=== PATIENT | male | born 1985 | race American Indian/Alaskan Native ===

== ENCOUNTER 2017-02-28 10:40 | Emergency (ER) | payer SELFPAY ==
[2017-02-28 10:49] VITALS: BP 113/78
[2017-02-28] MEDS ORDERED: MOTRIN PO ONE (11:11)
[2017-02-28] MEDS ORDERED: TRIPLE ANTIBIOTIC TP ONE (11:12)
--- NOTE | 2017-03-01 12:15 | Emergency Department Report ---
Entered by RALPH MELO, acting as scribe for SHIRLEY MAYO NP. ED General Adult HPI - General Chief complaint: Pain General Stated complaint: GROIN PAIN Time Seen by Provider: 02/28/17 10:57 Source: patient Mode of arrival: Ambulatory Limitations: No Limitations - History of Present Illness Initial comments: 32 year old male with a PMHx of hyperhydrosis presents to the ED c/o right inguinal pain that began two days ago. Patient states that he had a scratch two days ago that turned into a large lump the next day. He currently rates pain 7/ 10, but his pain is 10/10 with walking. He reports that it feels like someone is "squeezing his groin area with pliers". Denies fever, chills, nausea, erythema to affected area and lower leg pain. Reports pain is improved with immobilization and applied pressure, but worsens with walking, movement, and heat. Uses tobacco products daily. Patient stated used OTC oint as well. NKDA. Onset/Timin -: days(s) Location: right (inquinal pain) Radiation: non-radiation Severity scale (0 -10): 7 Quality: burning, aching Consistency: constant Improves with: immobilization, other (pressure) Worsens with: movement, other (heat) Associated Symptoms: other (erythema to affected area). denies: fever/chills, nausea/vomiting Treatments Prior to Arrival: none - Related Data Previous Rx's Medication Instructions Recorded Last Taken Type Naproxen [Naprosyn TAB] 500 mg PO PRN PRN #20 tablet 02/28/17 Unknown Rx Neomy/Baci/Polymyx B Opth Oint 3.5 gm OP TID #1 oint 02/28/17 Unknown Rx [Neosporin] Allergies Allergy/AdvReac Type Severity Reaction Status Date / Time No Known Allergies Allergy Unverified 02/28/17 10:46 ED Review of Systems Comment: All other systems reviewed and negative Constitutional: denies: chills, fever Eyes: denies: eye pain, eye discharge, vision change ENT: denies: ear pain, throat pain Respiratory: denies: cough, shortness of breath, wheezing Cardiovascular: denies: chest pain, palpitations Endocrine: no symptoms reported Gastrointestinal: denies: abdominal pain, nausea, diarrhea Genitourinary: denies: urgency, dysuria Musculoskeletal: denies: back pain, joint swelling, arthralgia Skin: denies: rash, lesions, change in color Neurological: denies: headache, weakness, paresthesias Psychiatric: denies: anxiety, depression Hematological/Lymphatic: denies: easy bleeding, easy bruising ED Past Medical Hx - Past Medical History Previous Medical History?: No - Surgical History Past Surgical History?: No - Social History Smoking Status: Current Every Day Smoker Substance Use Type: Alcohol, Marijuana - Medications Home Medications: Home Medications Medication Instructions Recorded Confirmed Last Taken Type Naproxen [Naprosyn TAB] 500 mg PO PRN PRN #20 tablet 02/28/17 Unknown Rx Neomy/Baci/Polymyx B Opth Oint 3.5 gm OP TID #1 oint 02/28/17 Unknown Rx [Neosporin] ED Physical Exam - General Limitations: No Limitations General appearance: alert, in no apparent distress - Head Head exam: Present: atraumatic, normocephalic - Eye Eye exam: Present: normal appearance, EOMI - ENT ENT exam: Present: normal exam, mucous membranes moist - Neck Neck exam: Present: normal inspection, full ROM. Absent: lymphadenopathy - Respiratory Respiratory exam: Present: normal lung sounds bilaterally. Absent: respiratory distress - Cardiovascular Cardiovascular Exam: Present: regular rate, normal rhythm - GI/Abdominal GI/Abdominal exam: Present: soft. Absent: distended - Extremities Exam Extremities exam: Present: normal inspection, full ROM - Expanded Lower Extremity Exam Right Hip exam: Present: normal inspection, full ROM Upper Leg exam: Present: full ROM, tenderness (right inquinal ), erythema ( right inquinal). Absent: normal inspection (2 cm open wound on right inquinal) , swelling, abrasion, laceration, ecchymosis, deformity, crepidus, dislocation Knee exam: Present: normal inspection, full ROM. Absent: tenderness, swelling Lower Leg exam: Present: normal inspection, full ROM. Absent: tenderness, swelling Ankle exam: Present: normal inspection, full ROM. Absent: tenderness, swelling Foot/Toe exam: Present: normal inspection, full ROM. Absent: tenderness, swelling, abrasion, laceration Neuro vascular tendon exam: Present: no vascular compromise. Absent: pulse deficit, abnormal cap refill, motor deficit, sensory deficit, pallor Gait: Positive: observed and limited by pain - Back Exam Back exam: Present: normal inspection, full ROM. Absent: tenderness - Neurological Exam Neurological exam: Present: alert, oriented X3 - Psychiatric Psychiatric exam: Present: normal affect, normal mood - Skin Skin exam: Present: warm, dry, intact, erythema (right inquinal), other (2 cm ulceration with induration on right inquinal). Absent: ecchymosis ED Course Vital Signs 02/28/17 02/28/17 02/28/17 10:47 11:26 12:18 Temperature 98.3 F Pulse Rate 87 Respiratory 18 18 18 Rate Blood Pressure 113/78 O2 Sat by Pulse 100 Oximetry - Reevaluation(s) Reevaluation #1: 02/28/17 11:35 at this Time I reevaluated the patient's pain level is 3 out of 10. Patient stated he feels much better. Neosporin and dressing applied to affected area. ED Medical Decision Making - Medical Decision Making Ed course: 32-year-old male complaining of right inguinal pain with open 2 cm wound. Patient stated he has been scratching the affected area for 2 days. 1- prescribed ibuprofen by mouth. Patient stated pain better and level is 3 out of 10. 2-wound has been cleaned and flushed with ns and applied Neosporin with a clean dressing. 3-I explained to the patient to keep the area clean and apply Neosporin. 4- prescribed Keflex. 5- I instructed the patient to follow up with the parts sales advisor in 2-5 days. 6- at this time the patient is nontoxic in appearance or any signs of distress. 7- patient aware of discharge plan and is they have any further questions. ED Disposition Clinical Impression: Cellulitis, Open wound Disposition: DISCHARGED TO HOME OR SELFCARE Is pt being admited?: No Does the pt Need Aspirin: No Condition: Stable Instructions: Naproxen (By mouth), Antibacterial Cleanser (On the skin), Cellulitis (ED) Additional Instructions: Please follow up with primary care doctor in 3-5 days. Please follow up with dermatology in 2-3 days. If you have any symptoms of redness, swelling, severe grown pain, or fever or chills please report back to emergency room. Keep area clean and dry Use Neosporin as prescribed Wash area with antibacterial soap Prescriptions: Naproxen [Naprosyn TAB] 500 mg PO PRN PRN #20 tablet PRN Reason: Pain Neomy/Baci/Polymyx B Opth Oint [Neosporin] 3.5 gm OP TID #1 oint Referrals: PRIMARY CARE, [Primary Care Provider] - 3-5 Days [facility] [Outside] - 3-5 Days [facility] [place] [Outside] - 3-5 Days DEBRA WEBBER MD [Staff Physician] - 2-3 Days Forms: Work/School Release Form(ED) This documentation as recorded by the LORIE heck JASMINE,accurately reflects the service I personally performed and the decisions made by me,SHIRLEY MAYO, SOFTWARE COMPUTER SPECIALIST.
== END 2017-02-28 12:16 | disposition home or self-care (01) ==
LOC: ED 10:40
DX: L03.314 Cellulitis of groin (principal); F17.200 Nicotine dependence, unspecified, uncomplicated; F12.10 Cannabis abuse, uncomplicated
CPT/HCPCS: 99283; A6250

== ENCOUNTER 2017-04-05 17:11 | Emergency (ER) | payer SELFPAY ==
[2017-04-05 18:17] LABS: Basophils % (Auto) 0.6 % (0.0-1.8); Eosinophils % (Auto) 1.3 % (0.0-4.3); Hematocrit 34.5 % (35.5-45.6); Mean Corpuscular HGB Conc 32 % (32-34); Mean Corpuscular Hemoglobin 27 pg (28-32); Mean Corpuscular Volume 83 fl (84-94); Platelet Count 317 K/mm3 (140-440); Red Blood Count 4.16 M/mm3 (3.65-5.03); Red Cell Distribution Width 13.3 % (13.2-15.2); White Blood Count 8.2 K/mm3 (4.5-11.0)
[2017-04-05 18:32] LABS: Anion Gap 21 mmol/L; BUN/Creatinine Ratio 18.75; Blood Urea Nitrogen 15 mg/dL (9-20); Calcium 8.7 mg/dL (8.4-10.2); Carbon Dioxide 20 mmol/L (22-30); Chloride 99.5 mmol/L (98-107); Glucose 83 mg/dL (75-100); Potassium 4.3 mmol/L (3.6-5.0); Sodium 136 mmol/L (137-145)
[2017-04-05 18:56] LABS: Bilirubin,Urine NEG (Negative); Blood,Urine NEG (Negative); Ketones,Urine NEG (Negative); Leukocyte Esterase,Urine SM (Negative); Mucus,Urine FEW /HPF; Nitrite,Urine NEG (Negative); Urobilinogen,Urine < 2.0 mg/dL (<2.0)
[2017-04-05 19:42] VITALS: BP 113/75
--- NOTE | 2017-04-05 20:02 | XRay Report ---
FINAL REPORT EXAM: XR CHEST ROUTINE 2V HISTORY: CP, SOB TECHNIQUE: PA and lateral chest radiographs PRIORS: None. FINDINGS: No focal consolidations are seen in the lungs and there are no pleural effusions.The cardiomediastinal silhouette is within normal limits for size and contour. No acute osseous abnormality is identified. IMPRESSION: 1. No definite radiographic evidence of acute cardiopulmonary disease. 2. No focal infiltrate is identified.
== END 2017-04-06 01:15 | disposition left against medical advice (07) ==
LOC: ED 17:11
DX: R21 Rash and other nonspecific skin eruption (principal); J02.9 Acute pharyngitis, unspecified; H92.09 Otalgia, unspecified ear; Z53.21 Procedure and treatment not carried out due to patient leaving prior to being seen by health care provider
CPT/HCPCS: 36415; 71020; 80048; 81001; 85025; 93005; 93010

== ENCOUNTER 2017-04-19 17:34 | Inpatient (IN) | payer OTHER ==
[2017-04-19] MEDS ORDERED: NACL 0.9% 500 ML 500 ML IV ONE (19:12)
[2017-04-19] MEDS ORDERED: TYLENOL PO ONE (19:13)
--- NOTE | 2017-04-19 19:15 | Emergency Department Report ---
Stated Complaint: CHEST PAIN Time Seen by Provider: 04/19/17 19:11 - HPI History of Present Illness: 32-year-old -[place] male comes in for chest pain that started 3-4 hours ago. Patient reports that he isn't currently on steroids for the last week for allergic reaction. He's had allergic reaction for 3-4 weeks. He reports he has been running a fever but not as high as it was today in triage. - Exam Physical Exam: Gen: alert oriented NAD appears to be uncomfortable Cardic: Tachycardic with no murmurs Resp: Clear to auscultation bilateral no wheezing no rales or rhonchi. Abdomen: Soft nontender nondistended normal bowel sounds. Skin: Urticaria all over the body MSE screening note: Focused history and physical exam performed. Due to findings the following was ordered: Septic workup ordered Tylenol 975 mg ED Disposition for MSE Condition: Stable
[2017-04-19 19:48] LABS: Hematocrit 28.8 % (35.5-45.6); Hemoglobin 9.6 gm/dl (11.8-15.2); Mean Corpuscular HGB Conc 33 % (32-34); Mean Corpuscular Hemoglobin 27 pg (28-32); Mean Corpuscular Volume 82 fl (84-94); Platelet Count 328 K/mm3 (140-440); Red Blood Count 3.53 M/mm3 (3.65-5.03); Red Cell Distribution Width 14.3 % (13.2-15.2); White Blood Count 10.2 K/mm3 (4.5-11.0)
[2017-04-19 19:58] LABS: INR 1.16 (0.87-1.13)
[2017-04-19 20:24] LABS: Alanine Aminotransferase 17 units/L (7-56); Albumin 3.2 g/dL (3.9-5); Albumin/Globulin Ratio 0.8 %; Alkaline Phosphatase 74 units/L (35-129); Anion Gap 19 mmol/L; BUN/Creatinine Ratio 25.55; Blood Urea Nitrogen 23 mg/dL (9-20); Carbon Dioxide 23 mmol/L (22-30); Chloride 99.3 mmol/L (98-107); Glucose 94 mg/dL (75-100); Potassium 3.5 mmol/L (3.6-5.0); Sodium 138 mmol/L (137-145); Total Protein 7.4 g/dL (6.3-8.2)
[2017-04-19 20:30] LABS: Basophils % (Manual) 0 % (0.0-1.8); Blastocytes % (Manual) 0 %; Eosinophils % (Manual) 0 % (0.0-4.3); Total Cells Counted Percent 0
[2017-04-19 20:32] LABS: Platelet Clumps Rare; Platelet Estimate Consistent w Auto; Target Cells Rare
[2017-04-19 20:33] LABS: Anisocytosis Few; Diff Status Complete; Poikilocytosis Few
[2017-04-19] MEDS ORDERED: NACL 0.9% 1000 ML 1,000 ML IV ONE ×2 (22:26)
[2017-04-19] MEDS ORDERED: TORADOL IV ONE (22:36)
--- NOTE | 2017-04-19 22:53 | Emergency Department Report ---
ED Fever HPI - General Chief Complaint: Chest Pain Stated Complaint: CHEST PAIN Time Seen by Provider: 04/19/17 19:11 - History of Present Illness Initial Comments: 32-year-old male with no past medical history presenting today because of diffuse myalgias, and fever. Patient states that he has had a diffuse body rash which was initially attributed to an allergic reaction to herbal teas and has been on steroids. He states he went to [facility] and received a shot of penicillin in case this was due to syphilis. There is shot was received earlier in the day and the patient wanted home and slept and then woke up with fevers headache, chest pain and diffuse body aches as well as fever. States that he only has sexual intercourse with his girlfriend does not use condoms. ED Review of Systems ROS: Stated complaint: CHEST PAIN Other details as noted in HPI ED Past Medical Hx - Past Medical History Previous Medical History?: Yes Hx Asthma: Yes - Surgical History Past Surgical History?: No - Social History Smoking Status: Current Every Day Smoker Substance Use Type: None - Medications Home Medications: Home Medications Medication Instructions Recorded Confirmed Last Taken Type Naproxen [Naprosyn TAB] 500 mg PO PRN PRN #20 tablet 02/28/17 Unknown Rx Neomy/Baci/Polymyx B Opth Oint 3.5 gm OP TID #1 oint 02/28/17 Unknown Rx [Neosporin] ED Physical Exam - General Limitations: No Limitations General appearance: alert, in no apparent distress - Head Head exam: Present: atraumatic - Eye Eye exam: Present: normal appearance - ENT ENT exam: Present: normal exam - Neck Neck exam: Present: normal inspection, other. Absent: meningismus - Respiratory Respiratory exam: Present: normal lung sounds bilaterally. Absent: respiratory distress, wheezes, rales - Cardiovascular Cardiovascular Exam: Present: normal rhythm, tachycardia - GI/Abdominal GI/Abdominal exam: Present: soft. Absent: distended, tenderness - Neurological Exam Neurological exam: Present: alert, oriented X3, CN II-XII intact, normal gait. Absent: motor sensory deficit - Psychiatric Psychiatric exam: Present: normal affect - Skin Skin exam: Present: other (multiple macular lesions diffusely on the skin) ED Course Vital Signs 04/19/17 04/20/17 04/20/17 19:21 00:34 03:21 Temperature 102.4 F H 99.2 F Pulse Rate 138 H 107 H 111 H Respiratory 20 18 18 Rate Blood Pressure 112/62 Blood Pressure 101/60 118/88 [Left] O2 Sat by Pulse 100 100 99 Oximetry - Consultations Consultation #1: 04/20/17 01:[address] Vázquez, will admit, requested ED bridge orders orders ED Medical Decision Making - Lab Data Result diagrams: 04/19/17 19:15 04/19/17 19:15 - Medical Decision Making No clear etiology of symptoms nuchal ridgidity noted on triage note but patient does not have nuchal ridgidity on my exam, no photophobia, kernig's and brudzinski negative rash does appear like it could be due to syphillis but does spare the palms. Jarisch Herxheimer reaction is a possibility but labs do show elevated lactic acid so have to presume this is due to sepsis Critical care attestation.: If time is entered above; I have spent that time in minutes in the direct care of this critically ill patient, excluding procedure time. ED Disposition Clinical Impression: Sepsis Qualifiers: Sepsis type: sepsis due to unspecified organism Qualified Code(s): A41.9 - Sepsis, unspecified organism Disposition: OP ADMITTED IP TO THIS HOSP Is pt being admited?: Yes Does the pt Need Aspirin: No Condition: Stable
[2017-04-19] MEDS ORDERED: VANCOMYCIN/NS 1 GM/250 ML 1 GM/250 ML BAG IV ONE (22:54)
[2017-04-19] MEDS ORDERED: MAXIPIME/NS 2 GM/100 ML 2 GM/100 ML BAG IV ONE (22:55)
--- NOTE | 2017-04-19 23:36 | Cat Scan Report ---
FINAL REPORT EXAM: CT HEAD/BRAIN WO CON HISTORY: headache TECHNIQUE: Noncontrast serial axial images from skull base to vertex. PRIORS: None. FINDINGS: There is no mass effect or midline shift. There are no abnormal intra or extra-axial fluid collections. Cortical sulci and lateral ventricles are within normal limits for size and configuration. Basilar cisterns are patent. No acute intracranial hemorrhage is identified. Visualized paranasal sinuses and mastoid air cells are well aerated. No acute osseous abnormality is identified. IMPRESSION: 1. No abnormal mass or acute intracranial hemorrhage is identified.
[2017-04-20 00:35] LABS: Bilirubin,Urine NEG (Negative); Blood,Urine SM (Negative); Ketones,Urine NEG (Negative); Leukocyte Esterase,Urine LG (Negative); Mucus,Urine FEW /HPF; Nitrite,Urine NEG (Negative); Protein,Urine <15 mg/dL mg/dL (Negative); Urobilinogen,Urine < 2.0 mg/dL (<2.0)
[2017-04-20] MEDS ORDERED: MORPHINE IV ONE (01:06)
--- NOTE | 2017-04-20 04:52 | History and Physical Report ---
History of Present Illness Date of examination: 04/20/17 Date of admission: 04/20/17 02:08 Chief complaint: Fever History of present illness: Patient is a 32-year-old man without any chronic medical problems who presents with worsening persistent constant fevers and chills that started today after [facility] and [facility] shot for rash believed to be syphilis. He has since developed diffuse myalgias, generalized headaches chest discomfort body aches. He denies any travel. He only has sexual intercourse with his steady long-term girlfriend without a condom. No homosexual intercourse. Review of prior records shows a visit to the [facility] emergency department on 02/28/2017; he had a open right inguinal wound from a scratch and he was treated with Keflex. He came to emergency department here on 04/05/2017 and he eloped without being seen by the physician. He denies any long distance travel. Past medical history: He denies Past surgical history: He denies Social history: He denies smoking cigarettes but he does smoke marijuana but no other illegal drugs alcohol abuse, full code Family history: Asked but not significant ROS: as HPI and all other ROS reviewed and negative. Medications and Allergies Allergies Allergy/AdvReac Type Severity Reaction Status Date / Time No Known Allergies Allergy Verified 04/19/17 22:59 Home Medications Medication Instructions Recorded Confirmed Last Taken Type Naproxen [Naprosyn TAB] 500 mg PO PRN PRN #20 tablet 02/28/17 Unknown Rx Neomy/Baci/Polymyx B Opth Oint 3.5 gm OP TID #1 oint 02/28/17 Unknown Rx [Neosporin] Active Meds: Active Medications Heparin Sodium (Porcine) (Heparin) 5,000 unit SUB-Q Q12HR MEMO Piperacillin Sod/Tazobactam Sod (Zosyn/Ns 4.5gm/100ml) 4.5 gm in 100 mls @ 200 mls/hr IV Q8HR MEMO PRN Reason: Protocol Exam - Physical Exam Narrative exam: GEN: Ill-appearing toxic NAD, AWAKE, ALERT, ORIENTATED 3 HEENT: NCAT, PERRL, EOMI, OP CLEAR NECK: SUPPLE, NO THYROMEGALY, NO JVD, NO LAD CVS: RRR, NORMAL S1S2 LUNGS/CHEST: CTA B, NORMAL CHEST EXPANSION B, GOOD AIR ENTRY B ABD: SOFT NTND, GBS, NO REBOUND OR GUARDING EXT/SKIN: NO SIGNIFICANT EDEMA, SIGNIFICANT PLAQUE-LIKE HYPOPIGMENTED DIFFUSE RASH FROM HIS SCALP TO THIS TOES but SPARES PALMS AND SOLES MSK: FROM X 4 EXTREMITIES NEURO: CN 2-12 GROSSLY INTACT, NO FOCAL DEFICITS, no nuchal ridgity PSY: CALM - Constitutional Vitals: Temp Pulse Resp BP Pulse Ox 99.2 F 111 H 18 118/88 99 04/20/17 00:34 04/20/17 03:21 04/20/17 03:21 04/20/17 03:21 04/20/17 03:21 Results - Labs CBC & Chem 7: 04/19/17 19:15 04/19/17 19:15 Assessment and Plan Patient is a 32-year-old man without any chronic medical problems who presents with worsening persistent constant fevers and chills with rash that started today after he [facility] and received penicillin shot for rash believed to be syphilis. He has since developed diffuse myalgias, generalized headaches chest discomfort body aches. He denies any travel. He only has sexual intercourse with his steady long-term girlfriend without a condom. No homosexual intercourse. Review of prior records shows a visit to the [facility] emergency department on 02/28/2017; he had a open right inguinal wound from a scratch and he was treated with Keflex. He came to emergency department here on 04/05/2017 and he eloped without being seen by the physician. He denies any long distance travel. Being admitted to the hospital because of pressure 102.4F, heart rate of 111 with evidence of UTI. The rash is extensive , it started about 2-3 weeks ago after he took a herbal substance x 1 and next day he woke up with the rash. He stopped the herbal pill. He only took once. He was given steroids and says that it has helped. -Sepsis due to UTI (in 32 yo male?): Treat with abx, consider calling Urology consult today -Rash, possibly viral exanthem vs other cause: iv steroids because it seems to help per patient, unfortunately dermatology is not available. -Anemia, microcytic, reactive: continue to monitor -DVT prophylaxis: scd and sq heparin
[2017-04-20] MEDS ORDERED: TYLENOL PO PRN (05:02)
[2017-04-20] MEDS ORDERED: ZOFRAN IV PRN (05:02)
[2017-04-20] MEDS ORDERED: REGLAN IV PRN (05:04)
[2017-04-20] MEDS ORDERED: ZOSYN/NS 4.5GM/100ML 4.5 GM/100 ML VIAL IV SCH (06:00)
[2017-04-20] MEDS: NORCO 5/325 PO PRN ×3 (06:40→22:12)
--- NOTE | 2017-04-20 07:28 | XRay Report ---
AP CHEST: HISTORY: Sepsis, palpitations AP view of the chest demonstrates a normal mediastinal and cardiac contour with clear lungs and normal bony and soft tissue structures. IMPRESSION: Unremarkable AP chest.
--- NOTE | 2017-04-20 07:57 | Admit Criteria Form ---
Admission Criteria Documentation: SEVERE SEPSIS Clinical Indications for Admission to Inpatient Care (Place 'X' for any and all applicable criteria): Hospital admission is needed for appropriate care of the patient because of ANY ONE of the following: [X]I. Hemodynamic instability indicated by ANY ONE of the following(1)(2)(3)( 4)(5): []a. Vital sign abnormality not readily corrected by appropriate treatment within 12 to 24 hours indicated by ANY ONE of the following: []i) Tachycardia that persists despite appropriate treatment []ii) Hypotension that persists despite appropriate treatment []iii) Orthostatic vital sign changes that persist despite appropriate treatment [X]b. Vital sign abnormality that is severe indicated by ANY ONE of the following: []i. Inadequate perfusion indicated by ANY ONE of the following: [X]1) Lactic acidosis (greater than 2 mmol/L) []2) New abnormal capillary refill (greater than 3 seconds) []3) Reduced urine output []4) New altered mental status []5) Myocardial Ischemia []ii. Mean arterial pressure [A] less than 60 mm Hg []iii. Mean arterial pressure[A] less than 70 mm Hg after 30 minutes of appropriate treatment (eg, fluid resuscitation) []iv. Sustained heart rate greater than 120 beats per minute in adult []v. IV inotropic or vasopressor medication required to maintain adequate blood pressure or perfusion []II. Systemic or infectious condition causing severe symptoms or findings not responsive to emergency or observation care treatment (as appropriate) indicated by ANY ONE of the following: []a. Cardiac arrhythmias of immediate concern(1)(2)(3) []b. Severe endocrine disorder (eg, thyrotoxicosis, adrenal insufficiency)(4)(5) []c. Seizures (eg, new or recurrent)(6) []d. New-onset end organ failure or dysfunction as indicated by ANY ONE of the following: []i. Acute unexplained hypoxemia (eg, not from lung infection or chronic disease)(7)(8)(9) []ii. Acute renal failure as indicated by new onset of ANY ONE of the following(10)(11)(12)(13)(14): []1) 3-fold rise in serum creatinine from baseline []2) Serum creatinine greater than 4 mg/dL (354 micromoles/L) with acute rise greater than 0.5 mg/dL (44.2 micromoles/L) []3) Reduction of more than 75% in estimated glomerular filtration rate from baseline. []4) Estimated glomerular filtration rate less than 35 mL/min/1.73m2 ( 0.59 mL/sec/1.73m2) in child younger than 18 years. []5) Cessation of urine output indicated by ALL of the following: []A. Adequate volume status []B. Inadequate urine output as indicated by ANY ONE of the following: []a. Urine output less than 0.3 mL/kg/hr for 24 hours []b. Anuria (urine output less than 0.1 mL/kg/hr) for 12 hours []iii. Acute mental status changes(15) []iv. Acute hepatic failure (eg, plasma bilirubin greater than 4 mg/ dL (68 micromoles/L), new INR greater than 2.0)(16)(17) []e. Unmanageable nausea and vomiting(18) []f. New-onset or uncontrolled central diabetes insipidus(19)(20) []g. Clinically significant dehydration(18)(21) []h. Hypoglycemia(22) []i. Acidosis (pH less than 7.35) or alkalosis (pH greater than 7.45)( 22)(23) []j. Toxic drug level that indicates need for specific monitoring or treatment(24)(25) []k. Severe electrolyte abnormalities indicated by ALL of the following( 1)(2)(3): []i. Electrolytes and associated findings are not as expected for patient baseline or acceptable treatment effects. []ii. Severe abnormalities indicated by ANY ONE of the following: []1) Sodium less than 130 mEq/L (mmol/L) (new) []2) Sodium less than 135 mEq/L (mmol/L) with ANY ONE of the following: []A. Uncorrectable (to near normal or chronic baseline) after trial of outpatient and emergency treatment []B. Altered mental status []C. Seizures []D. Severe medical etiology requiring inpatient management (eg , heart failure, hypovolemia) []3) Sodium greater than 155 mEq/L (mmol/L) []4) Sodium greater than 150 mEq/L (mmol/L) with ANY ONE of the following: []A. Uncorrectable (to near normal or chronic baseline) with outpatient and emergency treatment []B. Altered mental status []C. Seizures []D. Severe medical etiology (eg, hypovolemia, diabetes insipidus) []5) Potassium less than 2.5 mEq/L (mmol/L) despite outpatient and emergency treatment []6) Potassium less than 3 mEq/L (mmol/L) with ANY ONE of the following : []A. Weakness []B. Cardiac abnormality (eg, arrhythmia, conduction disturbance ) []C. Cardiac ischemia []D. Ileus []E. Ongoing medical cause requiring inpatient management (eg, acute renal wasting or SIADH) []F. Other severe symptoms []7) Potassium greater than 6.5 mEq/L (mmol/L) []8) Potassium greater than 5 mEq/L (mmol/L) with ANY ONE of the following: []A. Uncorrectable (to near normal or chronic baseline) with outpatient and emergency treatment []B. Severe ECG findings[A] []C. Acute worsening of renal failure (creatinine greater than 2.5 mg/dL (221 micromoles/L) or significant elevation for age and size) []D. Severe weakness []E. Severe medical etiology (eg, hemolysis, infection, drug overdose) []9) Calcium less than 7 mg/dL (1.75 mmol/L) despite outpatient and emergency treatment(5) []10) Calcium less than 8 mg/dL (2 mmol/L) with significant symptoms or findings (eg, altered mental status, muscle spasms, seizures, breathing difficulty, cardiac abnormality (eg, arrhythmia or conduction disturbance))(5) []11) Calcium greater than 14 mg/dL (3.5 mmol/L)(5) []12) Calcium greater than 12 mg/dL (3 mmol/L) with ANY ONE of the following(5): []A. Uncorrectable (to near normal or chronic baseline) with outpatient and emergency treatment []B. Significant dehydration or hypovolemia as indicated by ALL of the following(3)(6)(7): []a. Not resolved with initial treatments []b. Clinically significant dehydration as indicated by ANY ONE of the following: [](1) Vomiting refractory to outpatient treatment (ie, precluding oral rehydration) [](2) Inability to drink [](3) Hypernatremia or other electrolyte abnormality unable to be corrected with outpatient and emergency treatment [](4) Failure to remain hydrated with outpatient therapy [](5) Reduced urine output [](6) Hypotension [](7) Serious cause for dehydration requiring acute hospitalization ( eg, bowel obstruction, increased intracranial pressure, infectious cause) [](8) Child with ANY ONE of the following(8): [](i) Severe abdominal tenderness [](ii) Adequate care not available at home [](iii) Severe dehydration (greater than 9% loss of body weight) []C. Significant symptoms or findings (eg, altered mental status , cardiac abnormality (eg, arrhythmia, conduction disturbance), malignant etiology requiring inpatient treatment) []13) Phosphorus less than 1 mg/dL (0.32 mmol/L) []14) Phosphorus less than 1.5 mg/dL (0.48 mmol/L) with ANY ONE of the following: []A. Patient unresponsive to outpatient and emergency treatment []B. Significant symptoms or findings (eg, weakness, altered mental status, breathing difficulty, seizures, rhabdomyolysis) []15) Phosphorus greater than 10 mg/dL (3.2 mmol/L) []16) Phosphorus greater than 4.5 mg/dL (1.45 mmol/L) (new) with ANY ONE of the following: []A. Severe medical etiology (eg, crush injury, acute renal failure) []B. Associated hypocalcemia with significant findings (eg, neurologic symptoms, altered mental status, muscle spasms, seizures, breathing difficulty, cardiac abnormality (eg, arrhythmia, conduction disturbance)) []16) Magnesium less than 1 mg/dL (0.41 mmol/L) []17) Magnesium less than 1.5 mg/dL (0.62 mmol/L) with ANY ONE of the following: []A. Patient unresponsive to outpatient and emergency treatment []B. Associated hypocalcemia with significant findings (eg, altered mental status, muscle spasms, seizures, breathing difficulty, cardiac abnormality (eg, arrhythmia, conduction disturbance)) []C. Associated hypokalemia (potassium less than 3 mEq/L (mmol/L )) with risk of arrhythmia []18) Magnesium greater than 4 mEq/L (2 mmol/L) []19) Magnesium greater than 2.5 mEq/L (1.25 mmol/L) with significant symptoms or findings (eg, weakness, altered mental status, cardiac abnormality (eg, arrhythmia, conduction disturbance), breathing difficulty, severe medical etiology (eg, renal failure, hypovolemia)) []20) Uric acid greater than 20 mg/dL (1190 micromoles/L)(9) []21) Uric acid greater than 8 mg/dL (476 micromoles/L) with significant symptoms or findings of tumor lysis syndrome (eg, creatinine greater than 1.5 times upper limit of normal, cardiac abnormality (eg , arrhythmia, conduction disturbance), seizure)(9) []III. High fever or other high-risk infection situation as indicated by ANY ONE of the following(26)(27)(28): []a. Outpatient and observation care antimicrobial treatment unavailable, not effective, or not appropriate []b. Documented bacteremia []c. Temperature greater than 104.9 degrees F (40.5 degrees C) (oral) []d. Temperature greater than 103.1 degrees F (39.5 degrees C) (oral) or less than 96.8 degrees F (36 degrees C) (rectal) that does not respond to emergency treatment and observation care []IV. High-risk febrile neutropenia[A] as indicated by ANY ONE of the following(29)(30)(31)(32): []a. Profound neutropenia[B] anticipated to extend for more than 7 days []b. Hemodynamic instability []c. Hypoxemia []d. Tachypnea []e. Altered mental status []f. New-onset abdominal pain []g. New-onset vomiting or diarrhea []h. Oral or gastrointestinal mucositis that interferes with swallowing or causes severe diarrhea []i. Focal infection (eg, cellulitis, pneumonia, central line or catheter infection, perirectal abscess) []j. Renal insufficiency (eg, GFR of less than 30 mL/min/1.73m2 (0.5 mL/sec /1.73m2)). []k. Severe liver dysfunction (transaminase levels greater than 5 times normal) []l. Platelet count less than 50,000/mm3 (50 x109/L)(33) []m. Leukemia or lymphoma induction therapy []n. Leukemia not in complete remission or with evidence of disease progression []o. Bone marrow transplant patient []p. Alemtuzumab being used for therapy []q. [employer] Association for Supportive Care in Cancer (MASCC) Risk Index score of less than 21[C](33)(35). []V. Isolation required (eg, tuberculosis that requires isolation, Ebola infection)[D](36)(37)(38)(39)(40) []. Gangrene that requires treatment beyond emergency or observation level care(41)(42) []VII. Antitoxin administration and ongoing observation required (eg, tetanus, botulism)(43)(44) []. Suspected infection with rapid progression or severe symptoms as indicated by ANY ONE of the following(45): []a. Streptococcal or staphylococcal toxic shock(46) []b. Diphtheria(47) []c. Hantavirus(48) []d. Severe acute respiratory syndrome(8)(49) []e. Anthrax(50) []f. Ebola[D](36)(37)(38) []g. Necrotizing soft tissue infection(41)(42) []h. Plague(50) []i. Other suspected infection that requires care beyond emergency or observation level care []VII. Severe adverse drug or systemic toxin reaction as indicated by ANY ONE of the following(24): []a. Serotonin syndrome(51)(52) []b. Neuroleptic malignant syndrome(51)(52) []c. Cholinergic syndrome with severe symptoms (eg, bronchorrhea, weakness , mental status changes, seizures)(53) []d. Anticholinergic syndrome []e. Sympathetic syndrome with severe symptoms (eg, seizures, mental status changes, cardiac dysrhythmias) []f. Other severe adverse drug or systemic toxin reaction that remains after emergency or observation level care (as appropriate) []VIII. Allergic reaction with severe symptoms (not responsive to emergency or observation care treatment as appropriate), including ANY ONE of the following(54): []a. Airway edema (pharyngeal, epiglottic, or laryngeal edema) []b. Stridor []c. Respiratory failure []d. Bronchospasm []e. Hypotension []IX. Environmental emergency (not responsive to emergency or observation care treatment as appropriate) as indicated by ANY ONE of the following(55)(56): []a. Hyperthermia []b. Heat stroke []c. Heat exhaustion []d. Hypothermia (temperature less than 95 degrees F (35 degrees C) rectal) (57) []e. Electrocution(58) []X. Complications of transplanted organ (ie, not covered elsewhere)[E] indicated by ANY ONE of the following(59): []a. Acute graft rejection (or graft vs. host disease)[F] requiring inpatient management (eg, intravenous immunosuppression)(60)(61)(62)( 63) []b. Acute failure of transplanted organ necessitating inpatient care (eg, cannot be managed in other setting) []c. Infection requiring inpatient management (eg, Hemodynamic instability, need for intravenous antimicrobial treatment)(64)(65) []d. Other complication of transplanted organ requiring inpatient management []XI. Systemic or Infectious Condition condition, symptom, or finding for which emergency and observation care have failed or are not considered appropriate. See General Criteria: Observation Care, General Admission Criteria or Pediatric General Admission Criteria guideline as appropriate. (Contents from SEVERE SEPSIS and SYSTEMIC OR INFECTIOUS CONDITION clinical indications for admission to inpatient care have been integrated in this form) The original [facility] content created by [facility] has been revised. The portions of the content which have been revised are identified through the use of italic text or in bold and [facility] has neither reviewed nor approved the modified material. All other unmodified content is copyright [facility]. Please see references footnoted in the original [facility] edition 2016 Admission Criteria Met: Yes
[2017-04-20] MEDS: LEVAQUIN 500MG/100ML 500 MG/100 ML BAG IV SCH (11:14)
[2017-04-20] MEDS: PROTONIX PO SCH (11:15)
[2017-04-20] MEDS: HEPARIN SUB-Q SCH ×2 (11:15→22:13)
--- NOTE | 2017-04-21 07:19 | Consultation ---
History of Present Illness - Reason for Consult Consult date: 04/21/17 sepsis and rash - History of Present Illness Mr. Kaur is a 32-year-old man with no significant medical history who presented for evaluation of chest pain. He was incidentally noted to have a diffuse, papular rash with fever to >102 deg F. He says the rash developed abruptly after he ingested an herbal tea given to him by his girlfriend. She did not develop the same rash. He was reportedly seen at the [facility] and was treated presumptively for secondary syphilis. He has been receiving steroids, both oral and IV here, with improvement of the rash. He is no longer febrile. ID consultation is requested for assessment of rash. Past History Social history: single Family history: hypertension Medications and Allergies Allergies Allergy/AdvReac Type Severity Reaction Status Date / Time No Known Allergies Allergy Verified 04/19/17 22:59 Home Medications Medication Instructions Recorded Confirmed Last Taken Type Naproxen [Naprosyn TAB] 500 mg PO PRN PRN #20 tablet 02/28/17 Unknown Rx Neomy/Baci/Polymyx B Opth Oint 3.5 gm OP TID #1 oint 02/28/17 Unknown Rx [Neosporin] Active Meds: Active Medications Acetaminophen (Tylenol) 650 mg PO Q6H PRN PRN Reason: Non Cardiac Pain or Temp>100.5 Acetaminophen/Hydrocodone Bitart ([place] 5/325) 1 each PO Q4H PRN PRN Reason: Pain, Moderate (4-6) Last Admin: 04/20/17 22:12 Dose: 1 each Heparin Sodium (Porcine) (Heparin) 5,000 unit SUB-Q Q12HR [facility] Last Admin: 04/20/17 22:13 Dose: 5,000 unit Levofloxacin/Dextrose (Levaquin 500mg/100ml) 500 mg in 100 mls @ 100 mls/hr IV Q24HR [facility] PRN Reason: Protocol Last Admin: 04/20/17 11:14 Dose: 100 mls/hr Methylprednisolone Sodium Succinate (Solu-Medrol) 40 mg IV Q8HR [facility] Last Admin: 04/21/17 06:04 Dose: 40 mg Metoclopramide HCl (Reglan) 10 mg IV Q8H PRN PRN Reason: Nausea And Vomiting Pantoprazole Sodium (Protonix) 40 mg PO QDAY [facility] Last Admin: 04/20/17 11:15 Dose: 40 mg Review of Systems All systems: negative Constitutional: fever, no chills, no sweats Ears, nose, mouth and throat: no sore throat, no swelling in throat Cardiovascular: chest pain (resolved), no palpitations Respiratory: no cough, no hemoptysis, no shortness of breath, no wheezing Gastrointestinal: no abdominal pain, no nausea, no vomiting, no diarrhea Integumentary: rash, pruritis, no sores Allergic/Immunologic: no angioedema Physical Examination - Constitutional Vitals: Vital Signs Temp Pulse Resp BP Pulse Ox 98.8 F 76 20 119/65 97 04/20/17 23:51 04/20/17 23:51 04/20/17 23:51 04/20/17 23:51 04/20/17 23:51 Temperature -Last 24 Hours Temperature 98.8 F Temperature 97.9 F Temperature 98.5 F General appearance: Present: no acute distress - Respiratory Respiratory effort: normal Respiratory: bilateral: CTA, negative: wheezing - Cardiovascular Rhythm: regular - Extremities Extremities: No edema - Abdominal General gastrointestinal: Present: soft, non-distended - Integumentary Integumentary: Present: rash (diffuse papular rash with a mildly erythematous base, appears to be in a resolving stage, no new or active lesions, no superinfection) Results - Labs CBC & Chem 7: 04/21/17 08:47 04/21/17 08:47 Labs: Microbiology 04/19/17 19:15 Peripheral/Venous Blood Culture - Preliminary Coag Negative Staphylococcus 04/19/17 20:07 Peripheral/Venous Blood Culture - Preliminary NO GROWTH AFTER 24 HOURS - Imaging and Cardiology Chest x-ray: report reviewed (unremarkable findings) CT Scan - head: report reviewed (no acute findings) Assessment and Plan - Patient Problems (1) Sepsis Current Visit: Yes Status: Acute Qualifiers: Sepsis type: sepsis due to unspecified organism Qualified Code(s): A41.9 - Sepsis, unspecified organism Plan to address problem: No sepsis signs or concerns presently. (2) Rash due to allergy Current Visit: Yes Status: Acute Plan to address problem: Continue steroids as previously prescribed. No further treatment is recommended at this time.
[2017-04-21 09:26] LABS: Hematocrit 27.8 % (35.5-45.6); Mean Corpuscular HGB Conc 32 % (32-34); Mean Corpuscular Hemoglobin 27 pg (28-32); Mean Corpuscular Volume 82 fl (84-94); Platelet Count 304 K/mm3 (140-440); Red Blood Count 3.38 M/mm3 (3.65-5.03); Red Cell Distribution Width 14.3 % (13.2-15.2); White Blood Count 11.5 K/mm3 (4.5-11.0)
[2017-04-21 09:38] VITALS: BP 122/84
[2017-04-21 09:54] LABS: Anion Gap 18 mmol/L; Blood Urea Nitrogen 14 mg/dL (9-20); Calcium 8.7 mg/dL (8.4-10.2); Carbon Dioxide 23 mmol/L (22-30); Chloride 101.1 mmol/L (98-107); Glucose 126 mg/dL (75-100); Potassium 4.1 mmol/L (3.6-5.0); Sodium 138 mmol/L (137-145)
[2017-04-21] MEDS: PROTONIX PO SCH (10:53)
[2017-04-21] MEDS: LEVAQUIN 500MG/100ML 500 MG/100 ML BAG IV SCH (10:53)
[2017-04-21] MEDS: HEPARIN SUB-Q SCH (10:53)
[2017-04-21] MEDS ORDERED: WATER FOR INJ (PF) 10 ML ONE (14:21)
[2017-04-21] MEDS ORDERED: BENADRYL PO PRN (15:43)
--- NOTE | 2017-04-21 15:44 | Progress Note ---
Assessment and Plan Assessment and plan: --Diffuse rash/probably allergic reaction Continue tapering dose of steroids, antihistamines, supportive care Check RPR to rule out syphilitic rash patient denies risky sexual practices --Lactic acidosis/rule out sepsis Levels significantly improved,very minimal leukocytosis, continue empiric antibiotics with Levaquin Cultures negative to date, ID evaluation pending --Febrile illness/patient afebrile last 24-48 hours Closely monitor, follow cultures --Ongoing tobacco use Smoking cessation counseling done patient strongly advised nicotine patch Verbalized understanding --DVT prophylaxis With Lovenox Closely monitor the patient adjust the management as needed Disposition possible discharge home tomorrow if RPR is negative Further evaluation can be done as outpatient Follow ID evaluation and recommendations Plan of care discussed with patient as well as his nurse History Interval history: Patient seen and evaluated in his room this morning medical records reviewed Feels better, reports that his rash from the allergic reaction is improving Patient denies risky sexual practices Reports her rash appeared after taking some herbal products Alert awake oriented 3 not in acute distress Febrile last 24-48 hours Hospitalist Physical - Constitutional Vitals: Temp Pulse Resp BP Pulse Ox 98.2 F 68 20 122/84 100 04/21/17 08:25 04/21/17 08:25 04/21/17 08:25 04/21/17 08:25 04/21/17 08:25 General appearance: Present: no acute distress, well-nourished - EENT Eyes: Present: PERRL, EOM intact - Neck Neck: Present: supple, normal ROM - Respiratory Respiratory effort: normal Respiratory: negative: rales, rhonchi, wheezing - Cardiovascular Rhythm: regular Heart Sounds: Present: S1 & S2 - Extremities Extremities: no ischemia, pulses intact, pulses symmetrical Peripheral Pulses: within normal limits - Abdominal General gastrointestinal: soft, non-tender, non-distended, normal bowel sounds - Integumentary Integumentary: Present: rash (diffuse rash, significantly improved since yesterday) - Psychiatric Psychiatric: appropriate mood/affect, cooperative - Neurologic Neurologic: CNII-XII intact, moves all extremities Results - Labs CBC & Chem 7: 04/21/17 08:47 04/21/17 08:47 Labs: Laboratory Last Values WBC 11.5 K/mm3 (4.5-11.0) H 04/21/17 08:47 RBC 3.38 M/mm3 (3.65-5.03) L 04/21/17 08:47 Hgb 9.0 gm/dl (11.8-15.2) L 04/21/17 08:47 Hct 27.8 % (35.5-45.6) L 04/21/17 08:47 MCV 82 fl (84-94) L 04/21/17 08:47 MCH 27 pg (28-32) L 04/21/17 08:47 MCHC 32 % (32-34) 04/21/17 08:47 RDW 14.3 % (13.2-15.2) 04/21/17 08:47 Plt Count 304 K/mm3 (140-440) 04/21/17 08:47 Add Manual Diff Complete 04/19/17 19:15 Total Counted 100 04/19/17 19:15 Seg Neutrophils % Paediatrician 04/19/17 19:15 Seg Neuts % (Manual) 99.0 % (40.0-70.0) H 04/19/17 19:15 Band Neutrophils % 0 % 04/19/17 19:15 Lymphocytes % (Manual) 1.0 % (13.4-35.0) L 04/19/17 19:15 Reactive Lymphs % (Man) 0 % 04/19/17 19:15 Monocytes % (Manual) 0 % (0.0-7.3) 04/19/17 19:15 Eosinophils % (Manual) 0 % (0.0-4.3) 04/19/17 19:15 Basophils % (Manual) 0 % (0.0-1.8) 04/19/17 19:15 Metamyelocytes % 0 % 04/19/17 19:15 Myelocytes % 0 % 04/19/17 19:15 Promyelocytes % 0 % 04/19/17 19:15 Blast Cells % 0 % 04/19/17 19:15 Nucleated RBC % Not Reportable 04/19/17 19:15 Seg Neutrophils # Man 10.1 K/mm3 (1.8-7.7) H 04/19/17 19:15 Band Neutrophils # 0.0 K/mm3 04/19/17 19:15 Lymphocytes # (Manual) 0.1 K/mm3 (1.2-5.4) L 04/19/17 19:15 Abs React Lymphs (Man) 0.0 K/mm3 04/19/17 19:15 Monocytes # (Manual) 0.0 K/mm3 (0.0-0.8) 04/19/17 19:15 Eosinophils # (Manual) 0.0 K/mm3 (0.0-0.4) 04/19/17 19:15 Basophils # (Manual) 0.0 K/mm3 (0.0-0.1) 04/19/17 19:15 Metamyelocytes # 0.0 K/mm3 04/19/17 19:15 Myelocytes # 0.0 K/mm3 04/19/17 19:15 Promyelocytes # 0.0 K/mm3 04/19/17 19:15 Blast Cells # 0.0 K/mm3 04/19/17 19:15 WBC Morphology Not Reportable 04/19/17 19:15 Hypersegmented Neuts Not Reportable 04/19/17 19:15 Hyposegmented Neuts Not Reportable 04/19/17 19:15 Hypogranular Neuts Not Reportable 04/19/17 19:15 Smudge Cells Not Reportable 04/19/17 19:15 Toxic Granulation Not Reportable 04/19/17 19:15 Toxic Vacuolation Not Reportable 04/19/17 19:15 Dohle Bodies Not Reportable 04/19/17 19:15 Pelger-Huet Anomaly Not Reportable 04/19/17 19:15 Radha Rods Not Reportable 04/19/17 19:15 Platelet Estimate Consistent w auto 04/19/17 19:15 Clumped Platelets Rare 04/19/17 19:15 Plt Clumps, EDTA Not Reportable 04/19/17 19:15 Large Platelets Not Reportable 04/19/17 19:15 Giant Platelets Not Reportable 04/19/17 19:15 Platelet Satelliting Not Reportable 04/19/17 19:15 Plt Morphology Comment Not Reportable 04/19/17 19:15 RBC Morphology Not Reportable 04/19/17 19:15 Dimorphic RBCs Not Reportable 04/19/17 19:15 Polychromasia Not Reportable 04/19/17 19:15 Hypochromasia Not Reportable 04/19/17 19:15 Poikilocytosis Few 04/19/17 19:15 Anisocytosis Few 04/19/17 19:15 Microcytosis Not Reportable 04/19/17 19:15 Macrocytosis Not Reportable 04/19/17 19:15 Spherocytes Not Reportable 04/19/17 19:15 Pappenheimer Bodies Not Reportable 04/19/17 19:15 Sickle Cells Not Reportable 04/19/17 19:15 Target Cells Rare 04/19/17 19:15 Tear Drop Cells Not Reportable 04/19/17 19:15 Ovalocytes Not Reportable 04/19/17 19:15 Helmet Cells Not Reportable 04/19/17 19:15 [place] Bodies Not Reportable 04/19/17 19:15 [place] Rings Not Reportable 04/19/17 19:15 [place] Cells Not Reportable 04/19/17 19:15 Bite Cells Not Reportable 04/19/17 19:15 Crenated Cell Not Reportable 04/19/17 19:15 Elliptocytes Not Reportable 04/19/17 19:15 Acanthocytes (Spur) Not Reportable 04/19/17 19:15 Rouleaux Not Reportable 04/19/17 19:15 Hemoglobin C Crystals Not Reportable 04/19/17 19:15 Schistocytes Not Reportable 04/19/17 19:15 Malaria parasites Not Reportable 04/19/17 19:15 Jensen Bodies Not Reportable 04/19/17 19:15 Hem Pathologist Commnt No 04/19/17 19:15 PT 14.7 Sec. (12.2-14.9) 04/19/17 19:15 INR 1.16 (0.87-1.13) H 04/19/17 19:15 VBG pH 7.449 (7.320-7.420) H 04/19/17 19:15 Sodium 138 mmol/L (137-145) 04/21/17 08:47 Potassium 4.1 mmol/L (3.6-5.0) 04/21/17 08:47 Chloride 101.1 mmol/L (98-107) 04/21/17 08:47 Carbon Dioxide 23 mmol/L (22-30) 04/21/17 08:47 Anion Gap 18 mmol/L 04/21/17 08:47 BUN 14 mg/dL (9-20) 04/21/17 08:47 Creatinine 0.7 mg/dL (0.8-1.5) L 04/21/17 08:47 Estimated GFR > 60 ml/min 04/21/17 08:47 BUN/Creatinine Ratio 20.00 % 04/21/17 08:47 Glucose 126 mg/dL (75-100) H 04/21/17 08:47 Lactic Acid 1.60 mmol/L (0.7-2.0) 04/21/17 08:47 Calcium 8.7 mg/dL (8.4-10.2) 04/21/17 08:47 Total Bilirubin 0.40 mg/dL (0.1-1.2) 04/19/17 19:15 AST 31 units/L (5-40) 04/19/17 19:15 ALT 17 units/L (7-56) 04/19/17 19:15 Alkaline Phosphatase 74 units/L (35-129) 04/19/17 19:15 Troponin T < 0.010 ng/mL (0.00-0.029) 04/19/17 23:47 Total Protein 7.4 g/dL (6.3-8.2) 04/19/17 19:15 Albumin 3.2 g/dL (3.9-5) L 04/19/17 19:15 Albumin/Globulin Ratio 0.8 % 04/19/17 19:15 Urine Color Straw (Yellow) 04/20/17 00:18 Urine Turbidity Clear (Clear) 04/20/17 00:18 Urine pH 6.0 (5.0-7.0) 04/20/17 00:18 Ur Specific [place] 1.008 (1.003-1.030) 04/20/17 00:18 Urine Protein <15 mg/dl mg/dL (Negative) 04/20/17 00:18 Urine Glucose (UA) Neg mg/dL (Negative) 04/20/17 00:18 Urine Ketones Neg mg/dL (Negative) 04/20/17 00:18 Urine Blood Sm (Negative) 04/20/17 00:18 Urine Nitrite Neg (Negative) 04/20/17 00:18 Urine Bilirubin Neg (Negative) 04/20/17 00:18 Urine Urobilinogen < 2.0 mg/dL (<2.0) 04/20/17 00:18 Ur Leukocyte Esterase Lg (Negative) 04/20/17 00:18 Urine WBC (Auto) 42.0 /HPF (0.0-6.0) H 04/20/17 00:18 Urine RBC (Auto) 6.0 /HPF (0.0-6.0) 04/20/17 00:18 U Epithel Cells (Auto) < 1.0 /HPF (0-13.0) 04/20/17 00:18 Urine Mucus Few /HPF 04/20/17 00:18
--- NOTE | 2017-04-22 13:21 | Discharge Summary ---
Providers - Providers Date of Admission: 04/20/17 02:08 Date of discharge: 04/21/17 Attending physician: DELL TRAORE 04/20/17 04:46 Consult to Wound/ET Nurse [CONS] Routine Reason For Exam: wound eval 04/20/17 10:39 Consult to Physician [CONS] Routine Consulting Provider: COSMO HUDSON Reason For Exam: rash/sepsis Place consult to:: dr jaida thurman Notified:: cell Phone number called:: [phone] Was contact made?: Yes If yes, spoke with:: dr. jaida thurman Time called:: 11:00 Primary care physician: MICHAEL EUCEDA MD Hospitalization Condition: Stable Disposition: LEFT AGAINST MEDICAL ADVICE Exam - Constitutional Vitals: Temp Pulse Resp BP Pulse Ox 98.2 F 68 20 122/84 100 04/21/17 08:25 04/21/17 08:25 04/21/17 08:25 04/21/17 08:25 04/21/17 08:25 Plan Follow up with: MICHAEL EUCEDA MD [Primary Care Provider] - 3-5 Days Forms: AMA Form
== END 2017-04-21 18:00 | disposition left against medical advice (07) | DRG 872 ==
LOC: ED 17:34 → 3A 04-20 02:08
PROVIDERS: ADMIT Internal Medicine; ATTEND Internal Medicine
DX: A41.9 Sepsis, unspecified organism (principal); N39.0 Urinary tract infection, site not specified; E87.2 Acidosis; D50.9 Iron deficiency anemia, unspecified; F12.90 Cannabis use, unspecified, uncomplicated; T78.49XA Other allergy, initial encounter; R21 Rash and other nonspecific skin eruption; Z71.6 Tobacco abuse counseling; Z82.49 Family history of ischemic heart disease and other diseases of the circulatory system
CPT/HCPCS: 36415; 70450; 71010; 80048; 80053; 81001; 82140; 82805; 84484; 85007; 85025; 85027; 85610; 87040; 87086; 93005; 93010; 96365; 96375; 99406; J0692; J1644; J1885; J1956; J2270; J2543; J2920; J3370; J7030

== ENCOUNTER 2021-03-29 04:52 | Inpatient (IN) | payer OTHER ==
--- NOTE | 2021-03-29 06:33 | Event Note ---
ED Screening Note Date of service: 03/29/21 Time: 06:32 ED Screening Note: Pt c/o throat pain and jaw swelling x this morning significant submandibular swelling noted on exam This initial assessment/diagnostic orders/clinical plan/treatment(s) is/are subject to change based on patients health status, clinical progression and re- assessment by fellow clinical providers in the ED. Further treatment and workup at subsequent clinical providers discretion. Patient/guardian urged not to elope from the ED as their condition may be serious if not clinically assessed and managed. Initial orders include: labs pt may need CT neck to r/o hsusein
[2021-03-29 07:23] LABS: Basophils % (Auto) 0.3 % (0.0-1.8); Eosinophils # (Auto) 0.1 K/mm3 (0.0-0.4); Eosinophils % (Auto) 0.3 % (0.0-4.3); Hematocrit 42.3 % (35.5-45.6); Hemoglobin 14.1 gm/dl (11.8-15.2); Lymphocytes # (Auto) 1.7 K/mm3 (1.2-5.4); Lymphocytes % (Auto) 10.1 % (13.4-35.0); Mean Corpuscular HGB Conc 33 % (32-34); Mean Corpuscular Volume 89 fl (84-94); Monocytes # (Auto) 1.3 K/mm3 (0.0-0.8); Monocytes % (Auto) 7.8 % (0.0-7.3); Platelet Count 260 K/mm3 (140-440); Red Blood Count 4.75 M/mm3 (3.65-5.03)
[2021-03-29 07:48] LABS: Alanine Aminotransferase 16 units/L (7-56); Albumin 4.4 g/dL (3.9-5); BUN/Creatinine Ratio 15; Blood Urea Nitrogen 16 mg/dL (9-20); Calcium 9.4 mg/dL (8.4-10.2); Hemolysis Index 41
[2021-03-29] MEDS ORDERED: dexAMETHasone 20 MG/5 ML VIAL IV ONE (11:22)
[2021-03-29] MEDS ORDERED: LACTATED RINGERS 2,400 ML IV ONE (11:22)
[2021-03-29] MEDS ORDERED: MORPHINE 4 MG/1 ML INJ IV ONE ×2 (11:22→14:09)
[2021-03-29] MEDS ORDERED: CLINDAMYCIN 600 MG/50 mL 600 MG/50 ML BAG IV ONE (11:22)
[2021-03-29] MEDS ORDERED: ACETAMINOPHEN 325 MG/10.15 ML ORAL LIQD UNIT DOSE PO ONE (11:22)
[2021-03-29] MEDS ORDERED: ONDANSETRON 4 MG/2 ML INJ IV ONE (11:24)
--- NOTE | 2021-03-29 11:25 | Emergency Department Report ---
ED General Adult HPI - General Chief complaint: Sore Throat Stated complaint: my jaw hurts PUI?: No Time Seen by Provider: 03/29/21 06:31 Source: patient, EMS ( EMS documentation not available at time of chart dictation ), RN notes reviewed Mode of arrival: Ambulatory Limitations: No Limitations - History of Present Illness Initial comments: The patient was evaluated in the emergency department for symptoms described in the history of present illness. He/she was evaluated in the context of the global COVID-19 pandemic, which necessitated consideration that the patient might be at risk for infection with the virus that causes COVID-19. Institutional protocols and algorithms that pertain to the evaluation of patients at risk for COVID-19 are in a state of rapid change based on information released by regulatory bodies including the CDC and federal and state organizations. These policies and algorithms were followed during the patient's care in the emergency department. Please note that these policies, procedures and recommendations changed on a rapid basis. The patient is a 36-year-old gentleman. He reports a history of being HIV positive, and is currently on antiviral therapy. He endorses compliance with his medications. He also has a history of poor dentition. He presents to the ER with a complaint of painful submandibular swelling, present since 3:00 this morning. Positive low-grade fever. Positive dentalgia on his mandibular area teeth, near tooth #20, 21. He states that he is coughed and vomited up some blood. He denies nasal pain. He has anterior neck pain. He denies headache, chest pain, abdominal pain. He denies loss of taste and smell. He denies diarrhea. He denies urinary sym ptoms. His submandibular neck pain and swelling is constant, increases with palpation and decreases with rest. He is not had this happen to him in the past. -: Gradual, hour(s) Location: mouth, neck Radiation: non-radiation Severity scale (0 -10): 7 Consistency: constant Improves with: rest Worsens with: movement - Related Data Home Medications Medication Instructions Recorded Confirmed Last Taken Bictegrav/Emtricit/Tenofov Ala 1 tab PO DAILY 03/29/21 03/29/21 1 Day Ago [Biktarvy 50-200-25 mg (Nf)] ~03/28/21 50 Allergies Allergy/AdvReac Type Severity Reaction Status Date / Time No Known Allergies Allergy Verified 04/19/17 22:59 ED Review of Systems ROS: Stated complaint: JAW PAIN Other details as noted in HPI Constitutional: fever, malaise Eyes: denies: eye discharge ENT: throat pain, dental pain. denies: epistaxis, congestion Respiratory: cough Cardiovascular: denies: chest pain Gastrointestinal: denies: abdominal pain, melena, hematochezia Genitourinary: denies: dysuria Musculoskeletal: denies: myalgia Neurological: weakness Psychiatric: anxiety Hematological/Lymphatic: denies: easy bleeding ED Past Medical Hx - Past Medical History Previous Medical History?: Yes Hx Congestive Heart Failure: No Hx Diabetes: No Hx Seizures: No Hx Asthma: Yes Hx COPD: No Hx HIV: Yes - Surgical History Past Surgical History?: No - Social History Smoking Status: Current Every Day Smoker Substance Use Type: None - Medications Home Medications: Home Medications Medication Instructions Recorded Confirmed Last Taken Type Bictegrav/Emtricit/Tenofov Ala 1 tab PO DAILY 03/29/21 03/29/21 1 Day Ago History [Biktarvy 50-200-25 mg (Nf)] ~03/28/21 50 ED Physical Exam - General Limitations: No Limitations General appearance: alert, anxious - Head Head exam: Present: atraumatic, normocephalic - Eye Eye exam: Present: normal appearance, PERRL, EOMI. Absent: nystagmus - ENT ENT exam: Present: mucous membranes moist, normal external ear exam, other (The patient has poor dentition. Tooth #21 cracked. There is no signifcant gingival irritation. There is no sublingual tenderness. There is no stridor. There is no dysphonia. The tongue is midline. The uvula is midline.). Absent: normal orophraynx - Neck Neck exam: Present: tenderness, full ROM, lymphadenopathy. Absent: normal insp ection (There is diffuse submandibular swelling, induration and tenderness.) - Respiratory Respiratory exam: Present: normal lung sounds bilaterally. Absent: respiratory distress, wheezes, rales, rhonchi, stridor, decreased breath sounds - Cardiovascular Cardiovascular Exam: Present: normal rhythm, tachycardia, normal heart sounds. Absent: bradycardia, irregular rhythm, systolic murmur, diastolic murmur, rubs, gallop - GI/Abdominal GI/Abdominal exam: Present: soft. Absent: distended, tenderness, guarding, rebound, rigid, pulsatile mass - Rectal Rectal exam: Present: deferred - Extremities Exam Extremities exam: Present: normal inspection, full ROM, other (2+ pulses noted in the bilateral upper and lower extremities. There is no palpable cord. negative Homans sign. Muscular compartments are soft. The pelvis is stable.). Absent: pedal edema, calf tenderness - Back Exam Back exam: Present: normal inspection, full ROM. Absent: tenderness, CVA ten derness (R), CVA tenderness (L), paraspinal tenderness, vertebral tenderness - Neurological Exam Neurological exam: Present: alert, normal gait, other (No facial droop. Tongue midline. Extraocular movements intact bilaterally. Facial sensation intact to light touch in V1, V2, V3 distribution bilaterally. 5 and a 5 strength in 4 extremities. Sensation intact to light touch in 4 extremities.). Absent: motor sensory deficit - Psychiatric Psychiatric exam: Present: normal affect, normal mood, anxious - Skin Skin exam: Present: warm, dry, intact, normal color. Absent: rash ED Course Vital Signs 03/29/21 03/29/21 03/29/21 06:25 09:01 09:31 Temperature 99.0 F Pulse Rate 107 H 93 H 79 Respiratory 20 15 18 Rate Blood Pressure 132/84 Blood Pressure 114/84 [Right] O2 Sat by Pulse 98 98 97 Oximetry 03/29/21 03/29/21 03/29/21 10:01 10:31 11:01 Temperature Pulse Rate 76 79 80 Respiratory 18 17 17 Rate Blood Pressure 112/65 125/80 134/89 Blood Pressure [Right] O2 Sat by Pulse 96 97 98 Oximetry 03/29/21 03/29/21 11:45 12:01 Temperature Pulse Rate 90 86 Respiratory 14 17 Rate Blood Pressure 133/83 134/89 Blood Pressure [Right] O2 Sat by Pulse 99 98 Oximetry - Reevaluation(s) Reevaluation #1: 03/29/21 12:45 Differential diagnosis, including but not limited to: Odontogenic infection, oral cellulitis, oral phlegmon, Jamel's angina, submandibular adenopathy Assessment and plan: 36-year-old gentleman, with probable odontogenic infection, and likely systemic inflammatory response syndrome, manifest by tachycardia, and leukocytosis of 16,000. Start patient on n.p.o. status. Start antibiotics right away. IV fluids, antibiotics, pain medication, nausea medication, obtain emergent CT scan of the neck to better evaluate anatomy. Reassess after initial data points. Patient is protecting his airway at this time. He is not stridulous. This will likely require transfer to a facility that has either OMFS or ENT available for consultation. I have discussed this with the patient. He has articulated understanding. CT scan has been obtained, results are pending. Reevaluation #2: 03/29/21 13:24 CT scan of the neck reviewed and appreciated. Will discuss with ENT. This hospital does not have ENT entry level sales consultant. We will therefore reach out and discuss with ENT entry level sales consultant from [facility]. 03/29/21 14:10 CT scan of the neck demonstrated sialoadenitis without evidence of Jamel's angina, or imminent airway compromise. There is reactive adenopathy. Patient reassessed. He is awake, on his cell phone, saturating at 100% on room air. Have discussed with otolaryngology on-call at [facility]; Dr. Harpreet Esposito. We discussed the patient's history, physical, pertinent laboratory studies and imaging findings. We are in agreement that this patient does not require emergent surgical intervention or consultation at this time. He advises admission for 24 hours of antibiotics, supportive care, sialagogues, and gland massage. I have reevaluated the patient, and discussed this plan of care with him. The patient is amenable to this plan of care. Hospital physician, Dr. Sadaf Jaimes to admit to [facility] Medical decision makin-year-old gentleman who is immune compromised on antiviral therapy, with hemodynamically stable SIRS/sepsis, likely secondary to sialadenitis with reactive changes in platysma and digastric muscle, to be admitted for antibiotics, airway observation, and supportive care. His imaging and physical at this time do not suggest a need for emergent surgical intervention or consultation. ED Medical Decision Making - Lab Data Result diagrams: 03/29/21 06:44 03/29/21 06:44 Vital Signs 03/29/21 03/29/21 03/29/21 06:25 09:01 09:31 Temperature 99.0 F Pulse Rate 107 H 93 H 79 Respiratory 20 15 18 Rate Blood Pressure 132/84 Blood Pressure 114/84 [Right] O2 Sat by Pulse 98 98 97 Oximetry 03/29/21 03/29/21 03/29/21 10:01 10:31 11:01 Temperature Pulse Rate 76 79 80 Respiratory 18 17 17 Rate Blood Pressure 112/65 125/80 134/89 Blood Pressure [Right] O2 Sat by Pulse 96 97 98 Oximetry 03/29/21 03/29/21 11:45 12:01 Temperature Pulse Rate 90 86 Respiratory 14 17 Rate Blood Pressure 133/83 134/89 Blood Pressure [Right] O2 Sat by Pulse 99 98 Oximetry Lab Results 03/29/21 03/29/21 Range/Units 06:44 06:44 WBC 16.6 H (4.5-11.0) K/mm3 RBC 4.75 (3.65-5.03) M/mm3 Hgb 14.1 (11.8-15.2) gm/dl Hct 42.3 (35.5-45.6) % MCV 89 (84-94) fl MCH 30 (28-32) pg MCHC 33 (32-34) % RDW 14.0 (13.2-15.2) % Plt Count 260 (140-440) K/mm3 Lymph % (Auto) 10.1 L (13.4-35.0) % [place] % (Auto) 7.8 H (0.0-7.3) % Eos % (Auto) 0.3 (0.0-4.3) % Baso % (Auto) 0.3 (0.0-1.8) % Lymph # (Auto) 1.7 (1.2-5.4) K/mm3 [place] # (Auto) 1.3 H (0.0-0.8) K/mm3 Eos # (Auto) 0.1 (0.0-0.4) K/mm3 Baso # (Auto) 0.0 (0.0-0.1) K/mm3 Seg Neutrophils % 81.5 H (40.0-70.0) % Seg Neutrophils # 13.5 H (1.8-7.7) K/mm3 Sodium 137 (137-145) mmol/L Potassium 3.9 (3.6-5.0) mmol/L Chloride 102.2 (98-107) mmol/L Carbon Dioxide 19 L (22-30) mmol/L Anion Gap 20 mmol/L BUN 16 (9-20) mg/dL Creatinine 1.1 (0.8-1.3) mg/dL Estimated GFR > 60 ml/min BUN/Creatinine Ratio 15 % Glucose 77 (75-100) mg/dL Calcium 9.4 (8.4-10.2) mg/dL Total Bilirubin 0.70 (0.1-1.2) mg/dL AST 26 (5-40) units/L ALT 16 (7-56) units/L Alkaline Phosphatase 73 (35-129) units/L Total Protein 8.5 H (6.3-8.2) g/dL Albumin 4.4 (3.9-5) g/dL Albumin/Globulin Ratio 1.1 % - Radiology Data Radiology results: pending, report reviewed, image reviewed [address] [address] XRay Report Signed Patient: BONNIE CRUZ MR#: [id number] : 1985 Acct:[id number] Age/Sex: 36 / M ADM Date: 03/29/21 Loc: ED Attending Dr: Ordering Physician: KOBI REYES MD Date of Service: 03/29/21 Procedure(s): XR chest 1V ap Accession Number(s): [id number] cc: KOBI REYES MD Fluoro Time In Minutes: CHEST 1 VIEW 03/29/2021 11:22 AM INDICATION / CLINICAL INFORMATION: History of hemoptysis. COMPARISON: 04/19/2017 FINDINGS: SUPPORT DEVICES: None. HEART / MEDIASTINUM: No significant abnormality. LUNGS / PLEURA: No significant pulmonary or pleural abnormality. No pneumothorax. ADDITIONAL FINDINGS: No significant additional findings. IMPRESSION: 1. No acute findings. Signer Name: Nena Marin MD Signed: 03/29/2021 11:45 AM Workstation Name: [id number] Transcribed By: RH Dictated By: NENA MARIN III Electronically Authenticated By: NENA MARIN III Signed Date/Time: 03/29/21 1145 DD/ [address] [address] Cat Scan Report Signed Patient: BONNIE CRUZ MR#: [id number] : Acct:[id number] Age/Sex: 36 / M ADM Date: 03/29/21 Loc: ED Attending Dr: Ordering Physician: KOBI REYES MD Date of Service: 03/29/21 Procedure(s): CT neck w con Accession Number(s): [id number] cc: KOBI REYES MD CT neck w con INDICATION / CLINICAL INFORMATION: 36 years Male; Submandibular pain and swelling. TECHNIQUE: Contiguous thin cut axial images obtained through the neck following IV contrast. Sagittal and coronal reconstructions performed by the technologist. All CT scans at this location are performed using CT dose reduction for ALARA by means of automated exposure control. COMPARISON: None available. FINDINGS: There is moderate relative a enlargement and enhancement of the left submitted ventricular glands indicative of inflammatory changes at. Additionally, there is mild relative prominence of the ducts within the left gland compared to the right. However, there is no clear CT evidence of radiopaque calculi within the gland or along the visualized floor of mouth. There are notable inflammatory changes surrounding the left gland with prominence of the left platysma muscle as well as the anterior belly of the left digastric muscle. The findings extend to involve the superficial soft tissues with milder findings seen on the right. MUCOSAL SPACE: This mild prominence of the palatine soft tissues which may reflect lymphoid hypertrophy. No definitive focal lesions are identified at. The epiglottis is appropriate in size at. The laryngeal structures appear fairly symmetric at. LYMPH NODES: There are multiple scattered cervical lymph nodes, most notably within the jugulodigastric and left 70 better region with the largest nodes measuring 1 cm in short axis dimension. These nodes would appear to be reactive given the above findings. However, there are also a number of nodes extending more inferiorly within the posterior cervical chains bilaterally and correlation would be needed. SALIVARY GLANDS: As above regarding the submandibular glands. The visualized parotid glands appear to demonstrate symmetric attenuation without calcifica tion. THYROID GLAND: Unremarkable. PARANASAL SINUSES: Visualized paranasal sinuses and mastoid air cells are essentially clear. SPINE: No significant abnormality of the cervical spine appreciated. VASCULAR STRUCTURES: Vascular structures are grossly normal in appearance. IMPRESSION: 1. There are notable inflammatory changes surrounding the submandibular glands, greater on the left indicative of sialoadenitis as detailed above. No definitive radiopaque calculi are identified. 2. There is cervical lymphadenopathy, also described above which is likely reactive. Signer Name: Kobi Mansfield MD Signed: 03/29/2021 1:09 PM Workstation Name: [id number] Transcribed By: MR Dictated By: Kobi Mansfield MD Electronically Authenticated By: Kobi Mansfield MD Signed Date/Time: 03/29/21 1309 DD/ 1258 Critical Care Time: No Critical care attestation.: If time is entered above; I have spent that time in minutes in the direct care of this critically ill patient, excluding procedure time. ED Disposition Clinical Impression: Systemic inflammatory response syndrome (SIRS), History of HIV infection, Submandibular swelling, Sialoadenitis Disposition: OP ADMIT IP TO THIS HOSP Is pt being admited?: Yes Does the pt Need Aspirin: No Condition: Good Referrals: PRIMARY CAREMD [Primary Care Provider] - 3-5 Days
--- NOTE | 2021-03-29 11:49 | XRay Report ---
CHEST 1 VIEW 03/29/2021 11:22 AM INDICATION / CLINICAL INFORMATION: History of hemoptysis. COMPARISON: 04/19/2017 FINDINGS: SUPPORT DEVICES: None. HEART / MEDIASTINUM: No significant abnormality. LUNGS / PLEURA: No significant pulmonary or pleural abnormality. No pneumothorax. ADDITIONAL FINDINGS: No significant additional findings. IMPRESSION: 1. No acute findings. Signer Name: Roberto Marin MD Signed: 03/29/2021 11:45 AM Workstation Name: [id number]
[2021-03-29 12:33] LABS: INR 1.07 (0.87-1.13)
[2021-03-29 12:34] LABS: Partial Thromboplastin Time 26.4 Sec. (24.2-36.6)
--- NOTE | 2021-03-29 13:13 | Cat Scan Report ---
CT neck w con INDICATION / CLINICAL INFORMATION: 36 years Male; Submandibular pain and swelling. TECHNIQUE: Contiguous thin cut axial images obtained through the neck following IV contrast. Sagittal and de jesus l reconstructions performed by the technologist. All CT scans at this location are performed using CT dose reduction for ALARA by means of automated exposure control. COMPARISON: None available. FINDINGS: There is moderate relative a enlargement and enhancement of the left submitted ventricular glands indicative of inflammatory changes at. Additionally, there is mild relative prominence of the ducts within the left gland compared to the right. However, there is no clear CT evidence of radiopaq ue calculi within the gland or along the visualized floor of mouth. There are notable inflammatory ch anges surrounding the left gland with prominence of the left platysma muscle as well as the anterior belly of the left digastric muscle. The findings extend to involve the superficial soft tissues with milder findings seen on the right. MUCOSAL SPACE: This mild prominence of the palatine soft tissues which may reflect lymphoid hypertrop hy. No definitive focal lesions are identified at. The epiglottis is appropriate in size at. The delmar ngeal structures appear fairly symmetric at. LYMPH NODES: There are multiple scattered cervical lymph nodes, most notably within the jugulodigastr ic and left 70 better region with the largest nodes measuring 1 cm in short axis dimension. These nod es would appear to be reactive given the above findings. However, there are also a number of nodes ex tending more inferiorly within the posterior cervical chains bilaterally and correlation would be nee ded. SALIVARY GLANDS: As above regarding the submandibular glands. The visualized parotid glands appear to demonstrate symmetric attenuation without calcification. THYROID GLAND: Unremarkable. PARANASAL SINUSES: Visualized paranasal sinuses and mastoid air cells are essentially clear. SPINE: No significant abnormality of the cervical spine appreciated. VASCULAR STRUCTURES: Vascular structures are grossly normal in appearance. IMPRESSION: 1. There are notable inflammatory changes surrounding the submandibular glands, greater on the left i ndicative of sialoadenitis as detailed above. No definitive radiopaque calculi are identified. 2. There is cervical lymphadenopathy, also described above which is likely reactive. Signer Name: Kobi Mansfield MD Signed: 03/29/2021 1:09 PM Workstation Name: [id number]
[2021-03-29] MEDS ORDERED: KETOROLAC 30 MG/1 ML INJ IV ONE (14:14)
[2021-03-29] MEDS: CHLORHEXIDINE MOUTHWASH 473ML MM SCH ×2 (17:29→21:46)
[2021-03-29] MEDS: HYDROmorphone 1 MG/1 ML INJ IV PRN ×2 (17:52→21:37)
[2021-03-29] MEDS ORDERED: ONDANSETRON 4 MG/2 ML INJ IV PRN (22:50)
[2021-03-29] MEDS ORDERED: METOCLOPRAMIDE 10 MG/2 ML INJ IV PRN (22:50)
[2021-03-29] MEDS ORDERED: ACETAMINOPHEN 325 MG TAB PO PRN (22:50)
[2021-03-29] MEDS ORDERED: VANCOMYCIN PHARMACY TO DOSE IV SCH (23:00)
[2021-03-29] MEDS ORDERED: VANCOMYCIN 1,500 MG in SODIUM CHLORIDE 0.9% 500 ML 500 ML IV ONE (23:30)
[2021-03-29] MEDS: FAMOTIDINE 20 MG/2 ML INJ IV SCH (23:53)
[2021-03-29] MEDS: CEFEPIME/NS 2 GM/100 ML 2 GM/100 ML BAG IV SCH (23:53)
--- NOTE | 2021-03-30 01:15 | History and Physical Report ---
History of Present Illness Date of examination: 03/29/21 Date of admission: 03/29/21 14:13 Chief complaint: Swelling of right side of Face for 1 day. History of present illness: 36 year old AA male who is HIV positive for HIV on Biktarvy comes in swelling of Left side of face especially mandibular region .Pain is about 8 on a scale of 1 to 10. He also has a history of poor dentition. He presents to the ER with a complaint of painful submandibular swelling, present since 3:00 this morning. Positive low-grade fever. Positive dentalgia on his mandibular area teeth, near tooth #20, 21. He states that he is coughed and vomited up some blood. He denies nasal pain. He has anterior neck pain. He denies headache, chest pain, abdominal pain. He denies loss of taste and smell. He denies diarrhea. He denies urinary symptoms. His submandibular neck pain and swelling is constant, increases with palpation and decreases with rest. He is not had this happen to him in the past. -: Gradual, hour(s) Location: aram th, neck Radiation: non-radiation Severity scale (0 -10): 7 Consistency: constant mproves with: rest Worsens with: movement - Past Medical History Previous Medical History?: Yes --Asthma: Yes --HIV: Yes - Surgical History Past Surgical History?: No - Social History Smoking Status: Current Every Day Smoker Substance Use Type: None - Medications Home Medications: Home Medications Medication Instructions Recorded Confirmed Last Taken Type Bictegrav/Emtricit/Tenofov Ala 1 tab PO DAILY 03/29/21 03/29/21 1 Day Ago History [Biktarvy 50-200-25 mg (Nf)] ~03/28/21 50 Review of Systems ROS: Stated complaint: JAW PAIN Other details as noted in HPI Constitutional: fever, malaise Eyes: denies: eye discharge ENT: throat pain, dental pain. denies: epistaxis, congestion Respiratory: cough Cardiovascular: denies: chest pain Gastrointestinal: denies: abdominal pain, melena, hematochezia Genitourinary: denies: dysuria Musculoskeletal: denies: myalgia Neurological: weakness Psychiatric: anxiety Hematological/Lymphatic: denies: easy bleeding Medications and Allergies Allergies Allergy/AdvReac Type Severity Reaction Status Date / Time No Known Allergies Allergy Verified 05/30/17 22:59 Home Medications Medication Instructions Recorded Confirmed Last Taken Type Bictegrav/Emtricit/Tenofov Ala 1 tab PO DAILY 03/29/21 03/29/21 1 Day Ago History [Biktarvy 50-200-25 mg (Nf)] ~03/28/21 50 Active Meds: Active Medications Acetaminophen (Acetaminophen 325 Mg Tab) 650 mg PO Q4H PRN PRN Reason: Pain MILD(1-3)/Fever >100.5/CRUZ Chlorhexidine Gluconate (Chlorhexidine Mouthwash 473ml) 15 ml MM BID [facility] Last Admin: 03/29/21 21:46 Dose: Not Given Documented by: Famotidine (Famotidine 20 Mg/2 Ml Inj) 20 mg IV BID [facility] Last Admin: 03/29/21 23:53 Dose: 20 mg Documented by: Hydromorphone HCl (Hydromorphone 1 Mg/1 Ml Inj) 0.5 mg IV Q3H PRN PRN Reason: Pain , Severe (7-10) Last Admin: 03/29/21 21:37 Dose: 0.5 mg Documented by: Sodium Chloride (Nacl 0.9% 1000 Ml) 1,000 mls @ 100 mls/hr IV DIRECT [facility] Cefepime HCl (Cefepime/Ns 2 Gm/100 Ml) 2 gm in 100 mls @ 200 mls/hr IV Q8H [facility]; Protocol Last Admin: 03/29/21 23:53 Dose: 200 mls/hr Documented by: Metoclopramide HCl (Metoclopramide 10 Mg/2 Ml Inj) 10 mg IV Q6H PRN PRN Reason: Nausea And Vomiting Miscellaneous Medication (Bictegrav/Emtricit/Tenofov Ala) 1 tab PO DAILY [facility] Ondansetron HCl (Ondansetron 4 Mg/2 Ml Inj) 4 mg IV Q8H PRN PRN Reason: Nausea And Vomiting Oxycodone/Acetaminophen (Oxycodone /Acetaminophen 5-325mg Tab) 1 tab PO Q6H PRN PRN Reason: Pain, Moderate (4-6) Sodium Chloride (Sodium Chloride 0.9% 10 Ml Flush Syringe) 10 ml IV BID [facility] Last Admin: 03/29/21 23:53 Dose: 10 ml Documented by: Sodium Chloride (Sodium Chloride 0.9% 10 Ml Flush Syringe) 10 ml IV PRN PRN PRN Reason: LINE FLUSH Exam - Constitutional Vitals: Temp Pulse Resp BP Pulse Ox 97.9 F 74 16 127/81 98 03/29/21 21:18 03/29/21 21:18 03/29/21 21:18 03/29/21 21:18 03/29/21 21:18 General appearance: Present: no acute distress, well-nourished - EENT Eyes: Present: PERRL ENT: hearing intact, clear oral mucosa, poor dentition, other (Swelling opf L mandibular area and tender to touch) - Neck Neck: Present: supple, normal ROM - Respiratory Respiratory effort: normal Respiratory: bilateral: CTA - Cardiovascular Heart rate: 108 Rhythm: regular Heart Sounds: Present: S1 & S2. Absent: rub, click - Extremities Extremities: no ischemia, pulses intact, pulses symmetrical, No edema Peripheral Pulses: within normal limits - Abdominal General gastrointestinal: Present: deferred, soft, non-tender, non-distended, normal bowel sounds Male genitourinary: Present: normal - Rectal Rectal Exam: deferred - Integumentary Integumentary: Present: clear, warm, dry - Musculoskeletal Musculoskeletal: gait normal, strength equal bilaterally - Psychiatric Psychiatric: appropriate mood/affect, intact judgment & insight - Neurologic Neurologic: CNII-XII intact, moves all extremities - Allied Health Allied health notes reviewed: nursing, case management Results - Labs CBC & Chem 7: 03/29/21 06:44 03/29/21 06:44 Labs: Laboratory Last Values WBC 16.6 K/mm3 (4.5-11.0) H 03/29/21 06:44 RBC 4.75 M/mm3 (3.65-5.03) 03/29/21 06:44 Hgb 14.1 gm/dl (11.8-15.2) 03/29/21 06:44 Hct 42.3 % (35.5-45.6) 03/29/21 06:44 MCV 89 fl (84-94) 03/29/21 06:44 MCH 30 pg (28-32) 03/29/21 06:44 MCHC 33 % (32-34) 03/29/21 06:44 RDW 14.0 % (13.2-15.2) 03/29/21 06:44 Plt Count 260 K/mm3 (140-440) 03/29/21 06:44 Lymph % (Auto) 10.1 % (13.4-35.0) L 03/29/21 06:44 Rolette % (Auto) 7.8 % (0.0-7.3) H 03/29/21 06:44 Eos % (Auto) 0.3 % (0.0-4.3) 03/29/21 06:44 Baso % (Auto) 0.3 % (0.0-1.8) 03/29/21 06:44 Lymph # (Auto) 1.7 K/mm3 (1.2-5.4) 03/29/21 06:44 [place] # (Auto) 1.3 K/mm3 (0.0-0.8) H 03/29/21 06:44 Eos # (Auto) 0.1 K/mm3 (0.0-0.4) 03/29/21 06:44 Baso # (Auto) 0.0 K/mm3 (0.0-0.1) 03/29/21 06:44 Seg Neutrophils % 81.5 % (40.0-70.0) H 03/29/21 06:44 Seg Neutrophils # 13.5 K/mm3 (1.8-7.7) H 03/29/21 06:44 PT 13.7 Sec. (12.2-14.9) 03/29/21 11:29 INR 1.07 (0.87-1.13) 03/29/21 11:29 APTT 26.4 Sec. (24.2-36.6) 03/29/21 11:29 Sodium 137 mmol/L (137-145) 03/29/21 06:44 Potassium 3.9 mmol/L (3.6-5.0) 03/29/21 06:44 Chloride 102.2 mmol/L (98-107) 03/29/21 06:44 Carbon Dioxide 19 mmol/L (22-30) L 03/29/21 06:44 Anion Gap 20 mmol/L 03/29/21 06:44 BUN 16 mg/dL (9-20) 03/29/21 06:44 Creatinine 1.1 mg/dL (0.8-1.3) 03/29/21 06:44 Estimated GFR > 60 ml/min 03/29/21 06:44 BUN/Creatinine Ratio 15 % 03/29/21 06:44 Glucose 77 mg/dL (75-100) 03/29/21 06:44 Lactic Acid 1.10 mmol/L (0.7-2.0) 03/29/21 11:29 Calcium 9.4 mg/dL (8.4-10.2) 03/29/21 06:44 Magnesium 1.80 mg/dL (1.7-2.3) 03/29/21 11:29 Total Bilirubin 0.70 mg/dL (0.1-1.2) 03/29/21 06:44 AST 26 units/L (5-40) 03/29/21 06:44 ALT 16 units/L (7-56) 03/29/21 06:44 Alkaline Phosphatase 73 units/L (35-129) 03/29/21 06:44 Total Creatine Kinase 211 units/L (55-170) H 03/29/21 11:29 Total Protein 8.5 g/dL (6.3-8.2) H 03/29/21 06:44 Albumin 4.4 g/dL (3.9-5) 03/29/21 06:44 Albumin/Globulin Ratio 1.1 % 03/29/21 06:44 Microbiology: Microbiology 03/29/21 11:29 Peripheral/Venous Blood Culture - Preliminary Culture in Progress 03/29/21 11:29 Peripheral/Venous Blood Culture - Preliminary Culture in Progress - Imaging and Cardiology Imaging and Cardiology: CT neck w con INDICATION / CLINICAL INFORMATION: 36 years Male; Submandibular pain and swelling. TECHNIQUE: Contiguous thin cut axial images obtained through the neck following IV contrast. Sagittal and coronal reconstructions performed by the technologist. All CT scans at this location are performed using CT dose reduction for ALARA by means of automated exposure control. COMPARISON: None available. FINDINGS: There is moderate relative a enlargement and enhancement of the left submitted ventricular glands indicative of inflammatory changes at. Additionally, there is mild relative prominence of the ducts within the left gland compared to the right. However, there is no clear CT evidence of radiopaque calculi within the gland or along the visualized floor of mouth. There are notable inflammatory changes surrounding the left gland with prominence of the left platysma muscle as well as the anterior belly of the left digastric muscle. The findings extend to involve the superficial soft tissues with milder findings seen on the right. MUCOSAL SPACE: This mild prominence of the palatine soft tissues which may reflect lymphoid hypertrophy. No definitive focal lesions are identified at. The epiglottis is appropriate in size at. The laryngeal structures appear fairly symmetric at. LYMPH NODES: There are multiple scattered cervical lymph nodes, most notably within the jugulodigastric and left 70 better region with the largest nodes measuring 1 cm in short axis dimension. These nodes would appear to be reactive given the above findings. However, there are also a number of nodes extending more inferiorly within the posterior cervical chains bilaterally and correlation would be needed. SALIVARY GLANDS: As above regarding the submandibular glands. The visualized parotid glands appear to demonstrate symmetric attenuation without calcification. THYROID GLAND: Unremarkable. PARANASAL SINUSES: Visualized paranasal sinuses and mastoid air cells are essentially clear. SPINE: No significant abnormality of the cervical spine appreciated. VASCULAR STRUCTURES: Vascular structures are grossly normal in appearance. IMPRESSION: 1. There are notable inflammatory changes surrounding the submandibular glands, greater on the left indicative of sialoadenitis as detailed above. No definitive radiopaque calculi are identified. 2. There is cervical lymphadenopathy, also described above which is likely reactive. Maharaj/IV: Voiding Method Toilet Assessment and Plan Advance Directives: Yes (Full code) VTE prophylaxis?: Chemical Plan of care discussed with patient/family: Yes - Patient Problems (1) Systemic inflammatory response syndrome (SIRS) Current Visit: Yes Status: Acute Plan to address problem: high white count and Tachycardia On Cefepime and IV Vancomycin (2) Sialoadenitis Current Visit: Yes Status: Acute Plan to address problem: IV abx for now --IV Cefepime and IV Vancomycin If no response transfer to a facility with ENT (3) History of HIV infection Current Visit: Yes Status: Chronic Plan to address problem: on Biktarvy (4) DVT prophylaxis Current Visit: Yes Status: Acute Plan to address problem: on Heparin and GI prophylaxis
[2021-03-30] MEDS: SODIUM CHLORIDE 0.9% 1000 ML 1,000 ML IV SCH ×3 (02:15→22:49)
[2021-03-30] MEDS: HYDROmorphone 1 MG/1 ML INJ IV PRN ×4 (05:37→23:06)
[2021-03-30] MEDS: CEFEPIME/NS 2 GM/100 ML 2 GM/100 ML BAG IV SCH ×2 (06:35→14:43)
[2021-03-30 06:42] LABS: Basophils % (Auto) 0.1 % (0.0-1.8); Hemoglobin 12.5 gm/dl (11.8-15.2); Lymphocytes # (Auto) 2.3 K/mm3 (1.2-5.4); Lymphocytes % (Auto) 14.2 % (13.4-35.0); Mean Corpuscular HGB Conc 33 % (32-34); Mean Corpuscular Volume 89 fl (84-94); Monocytes # (Auto) 0.9 K/mm3 (0.0-0.8); Monocytes % (Auto) 5.4 % (0.0-7.3); Platelet Count 234 K/mm3 (140-440); Red Blood Count 4.25 M/mm3 (3.65-5.03); Red Cell Distribution Width 14.1 % (13.2-15.2)
[2021-03-30 07:11] LABS: Alanine Aminotransferase 10 units/L (7-56); Albumin 3.8 g/dL (3.9-5); BUN/Creatinine Ratio 15; Blood Urea Nitrogen 12 mg/dL (9-20); Calcium 8.7 mg/dL (8.4-10.2); Hemolysis Index 3
[2021-03-30] MEDS: FAMOTIDINE 20 MG/2 ML INJ IV SCH ×2 (09:51→22:48)
[2021-03-30] MEDS: CHLORHEXIDINE MOUTHWASH 473ML MM SCH (09:53)
[2021-03-30] MEDS ORDERED: NON-FORMULARY EACH (Bictegrav/Emtricit/Tenofov Ala 1 EACH Tablet) PO SCH (10:00)
[2021-03-30] MEDS: TENOFOVIR 300 MG TAB PO SCH (10:45)
[2021-03-30] MEDS: DOLUTEGRAVIR 50 MG TAB PO SCH (10:45)
[2021-03-30] MEDS: EMTRICITABINE 200 MG CAP PO SCH (10:45)
--- NOTE | 2021-03-30 10:49 | Progress Note ---
Assessment and Plan Assessment and plan: Assessment and Plan Advance Directives: Yes (Full code) VTE prophylaxis?: Chemical Plan of care discussed with patient/family: Yes - Patient Problems (1) Systemic inflammatory response syndrome (SIRS) Current Visit: Yes Status: Acute Plan to address problem: high white count and Tachycardia On Cefepime and IV Vancomycin (2) Sialoadenitis Current Visit: Yes Status: Acute Plan to address problem: IV abx for now --IV Cefepime and IV Vancomycin If no response transfer to a facility with ENT (3) History of HIV infection Current Visit: Yes Status: Chronic Plan to address problem: on Biktarvy (4) DVT prophylaxis Current Visit: Yes Status: Acute Plan to address problem: on Heparin and GI prophylaxis 03/30/21 Patient is seen and examined. Patient complained of pain in the neck left side of the face submandibular area 05/30. WBC 16.[address] scan of the neck showed sialoadenitis Patient is on cefepime 2 g IV every 8 hours and IV vancomycin. Patient also has HIV patient is on Biktarvy. Waiting for infectious disease evaluation. If patient is no improved we need to transfer to a facility with ENT. Continue current management . Recheck CBC BMP in the morning History Interval history: Patient is seen and examined Patient chart and medications reviewed Patient complaining of pain in the neck submandibular area and complaining of difficulty swallowing. No shortness of breath no chest pain Waiting for ID evaluation Vitals are noted Hospitalist Physical - Constitutional Vitals: Temp Pulse Resp BP Pulse Ox 97.9 F 74 16 127/81 98 03/29/21 21:18 03/29/21 21:18 03/29/21 21:18 03/29/21 21:18 03/29/21 21:18 General appearance: Present: no acute distress, well-nourished - EENT Eyes: Present: PERRL, EOM intact ENT: oropharyngeal erythema - Neck Neck: Present: supple, normal ROM - Respiratory Respiratory effort: normal Respiratory: bilateral: CTA - Cardiovascular Rhythm: regular Heart Sounds: Present: S1 & S2 - Extremities Extremities: no ischemia Peripheral Pulses: within normal limits - Abdominal General gastrointestinal: soft, non-tender, non-distended, normal bowel sounds - Integumentary Integumentary: Present: warm - Psychiatric Psychiatric: appropriate mood/affect, memory intact - Neurologic Neurologic: CNII-XII intact, moves all extremities - Allied Health Allied health notes reviewed: nursing Results - Labs CBC & Chem 7: 03/30/21 05:56 03/30/21 05:56 Labs: Laboratory Last Values WBC 16.0 K/mm3 (4.5-11.0) H 03/30/21 05:56 RBC 4.25 M/mm3 (3.65-5.03) 03/30/21 05:56 Hgb 12.5 gm/dl (11.8-15.2) 03/30/21 05:56 Hct 38.0 % (35.5-45.6) 03/30/21 05:56 MCV 89 fl (84-94) 03/30/21 05:56 MCH 30 pg (28-32) 03/30/21 05:56 MCHC 33 % (32-34) 03/30/21 05:56 RDW 14.1 % (13.2-15.2) 03/30/21 05:56 Plt Count 234 K/mm3 (140-440) 03/30/21 05:56 Lymph % (Auto) 14.2 % (13.4-35.0) 03/30/21 05:56 [place] % (Auto) 5.4 % (0.0-7.3) 03/30/21 05:56 Eos % (Auto) 0.0 % (0.0-4.3) 03/30/21 05:56 Baso % (Auto) 0.1 % (0.0-1.8) 03/30/21 05:56 Lymph # (Auto) 2.3 K/mm3 (1.2-5.4) 03/30/21 05:56 [place] # (Auto) 0.9 K/mm3 (0.0-0.8) H 03/30/21 05:56 Eos # (Auto) 0.0 K/mm3 (0.0-0.4) 03/30/21 05:56 Baso # (Auto) 0.0 K/mm3 (0.0-0.1) 03/30/21 05:56 Seg Neutrophils % 80.3 % (40.0-70.0) H 03/30/21 05:56 Seg Neutrophils # 12.8 K/mm3 (1.8-7.7) H 03/30/21 05:56 PT 13.7 Sec. (12.2-14.9) 03/29/21 11:29 INR 1.07 (0.87-1.13) 03/29/21 11:29 APTT 26.4 Sec. (24.2-36.6) 03/29/21 11:29 Sodium 138 mmol/L (137-145) 03/30/21 05:56 Potassium 4.3 mmol/L (3.6-5.0) 03/30/21 05:56 Chloride 102.5 mmol/L (98-107) 03/30/21 05:56 Carbon Dioxide 23 mmol/L (22-30) 03/30/21 05:56 Anion Gap 17 mmol/L 03/30/21 05:56 BUN 12 mg/dL (9-20) 03/30/21 05:56 Creatinine 0.8 mg/dL (0.8-1.3) 03/30/21 05:56 Estimated GFR > 60 ml/min 03/30/21 05:56 BUN/Creatinine Ratio 15 % 03/30/21 05:56 Glucose 107 mg/dL (75-100) H 03/30/21 05:56 Hemoglobin A1c 5.0 % (4-6) 03/30/21 05:56 Lactic Acid 1.10 mmol/L (0.7-2.0) 03/29/21 11:29 Calcium 8.7 mg/dL (8.4-10.2) 03/30/21 05:56 Magnesium 1.80 mg/dL (1.7-2.3) 03/29/21 11:29 Total Bilirubin 0.30 mg/dL (0.1-1.2) 03/30/21 05:56 AST 15 units/L (5-40) 03/30/21 05:56 ALT 10 units/L (7-56) 03/30/21 05:56 Alkaline Phosphatase 63 units/L (35-129) 03/30/21 05:56 Total Creatine Kinase 211 units/L (55-170) H 03/29/21 11:29 Total Protein 7.3 g/dL (6.3-8.2) 03/30/21 05:56 Albumin 3.8 g/dL (3.9-5) L 03/30/21 05:56 Albumin/Globulin Ratio 1.1 % 03/30/21 05:56 Microbiology: Microbiology 03/29/21 11:29 Peripheral/Venous Blood Culture - Preliminary Culture in Progress 03/29/21 11:29 Peripheral/Venous Blood Culture - Preliminary Culture in Progress Maharaj/IV: Voiding Method Toilet Active Medications - Current Medications Current Medications: Generic Name Dose Route Start Last Admin Trade Name Freq PRN Reason Stop Dose Admin Acetaminophen 650 mg 03/29/21 22:50 Acetaminophen 325 Mg Tab PO Q4H PRN Pain MILD(1-3)/Fever >100.5/CRUZ Chlorhexidine Gluconate 15 ml 03/29/21 15:00 03/30/21 09:53 Chlorhexidine Mouthwash 473ml MM 15 ml BID [facility] Administration Emtricitabine 200 mg 03/30/21 10:30 Emtricitabine 200 Mg Cap PO QDAY [facility] Famotidine 20 mg 03/29/21 23:00 03/30/21 09:51 Famotidine 20 Mg/2 Ml Inj IV 20 mg BID [facility] Administration Hydromorphone HCl 0.5 mg 03/29/21 17:41 03/30/21 09:51 Hydromorphone 1 Mg/1 Ml Inj IV 0.5 mg Q3H PRN Administration Pain , Severe (7-10) Sodium Chloride 1,000 mls @ 100 mls/hr 03/29/21 23:00 03/30/21 02:15 Nacl 0.9% 1000 Ml IV 100 mls/hr DIRECT [facility] Administration Cefepime HCl 2 gm in 100 mls @ 200 mls/hr 03/29/21 23:00 03/30/21 06:35 Cefepime/Ns 2 Gm/100 Ml IV 200 mls/hr Q8H [facility] Administration Protocol Vancomycin HCl 1,250 mg/ 275 mls @ 166.667 mls/hr 03/30/21 12:00 Sodium Chloride IV Q12H [facility] Metoclopramide HCl 10 mg 03/29/21 22:50 Metoclopramide 10 Mg/2 Ml Inj IV Q6H PRN Nausea And Vomiting Ondansetron HCl 4 mg 03/29/21 22:50 Ondansetron 4 Mg/2 Ml Inj IV Q8H PRN Nausea And Vomiting Oxycodone/Acetaminophen 1 tab 03/29/21 22:50 Oxycodone /Acetaminophen 5-325mg Tab PO Q6H PRN Pain, Moderate (4-6) Sodium Chloride 10 ml 03/29/21 23:00 03/30/21 09:53 Sodium Chloride 0.9% 10 Ml Flush Syringe IV 10 ml BID [facility] Administration Sodium Chloride 10 ml 03/29/21 22:50 Sodium Chloride 0.9% 10 Ml Flush Syringe IV PRN PRN LINE FLUSH Tenofovir Disoproxil Fumarate 300 mg 03/30/21 10:30 Tenofovir 300 Mg Tab PO QDAY [facility] Nutrition/Malnutrition Assess - Malnutrition Assessment Minimum of two criteria: No physical signs of malnutrition - Attestation Statement I have reviewed and agreed w/ Malnutrition eval & tx plan: Yes
[2021-03-30] MEDS: VANCOMYCIN 1,250 MG in SODIUM CHLORIDE 0.9% 250ML 250 ML IV SCH ×2 (12:39→23:10)
[2021-03-30] MEDS: oxyCODONE /ACETAMINOPHEN 5-325MG TAB PO PRN ×2 (12:39→17:46)
--- NOTE | 2021-03-30 17:14 | Consultation ---
History of Present Illness - Reason for Consult Consult date: 03/30/21 Salivary gland abscess Requesting physician: BIBIANA SCOTT - History of Present Illness 36-year-old male with history of HIV stable on Biktarvy, admitted on 03/29/2021 secondary to submandibular edema, tenderness for the 24 hours. Patient also reports low-grade fever. Patient has been complaining of toothache in the lower left molar area for 24 hours before swelling is static. Patient has not seen a dentist. Patient also has been coughing and was nauseated and throw up x1. On arrival, temperature 99, HR 107, R20, O2 98%, BP 114/84. Initial WBC 16.6. Platelets 260. Creatinine 1.1. Blood culture 03/29/[address] neck shows notable inflammatory changes bilateral submandibular glands left more than right. Review of Systems: positive in bold print General: fever, chills, malaise Cutaneous: rash, pruritus Head: headaches or injury Eyes: changes in vision, eye pain, double vision Ears: ear pain, ear discharge, ringing or hearing loss Nose: nose bleeding, stuffiness Mouth & throat: bleeding gums, horseness, no dental problems, or swollen glands Neck: submandibular pain, node enlargement/lumps, tyroid enlargement or tenderness Respiratory: SOB, cough, ORDONEZ, wheezing, sputum, hemoptysis, pleuritic chest pain Cardiovascular: chest pain, leg edema, cyanosis, ORDONEZ, orthopnea Musculoskeletal: edema, deformities, pain Gastrointestinal: nausea, vomiting, hematemesis, diarrhea, constipation, melena, bright red blood in stools, fecal incontinence, jaundice Genitourinary/Reproductive: frequent urination, dysuria, hematuria, incontinence Neurogical: seizures, headaches, weakness, paresthesias, loss of speech or vision; memory loss, vertigo, tremors, numbness Psychiatric: stable mood; excessive anxiety, sadness or moodiness Medications and Allergies Allergies Allergy/AdvReac Type Severity Reaction Status Date / Time No Known Allergies Allergy Verified 04/19/17 22:59 Home Medications Medication Instructions Recorded Confirmed Last Taken Type Bictegrav/Emtricit/Tenofov Ala 1 tab PO DAILY 03/29/21 03/29/21 1 Day Ago History [Biktarvy 50-200-25 mg (Nf)] ~03/28/21 50 Active Meds: Active Medications Acetaminophen (Acetaminophen 325 Mg Tab) 650 mg PO Q4H PRN PRN Reason: Pain MILD(1-3)/Fever >100.5/CRUZ Chlorhexidine Gluconate (Chlorhexidine Mouthwash 473ml) 15 ml MM BID [facility] Last Admin: 03/30/21 09:53 Dose: 15 ml Documented by: Emtricitabine (Emtricitabine 200 Mg Cap) 200 mg PO QDAY [facility] Last Admin: 03/30/21 10:45 Dose: 200 mg Documented by: Famotidine (Famotidine 20 Mg/2 Ml Inj) 20 mg IV BID [facility] Last Admin: 03/30/21 09:51 Dose: 20 mg Documented by: Hydromorphone HCl (Hydromorphone 1 Mg/1 Ml Inj) 0.5 mg IV Q3H PRN PRN Reason: Pain , Severe (7-10) Last Admin: 03/30/21 15:05 Dose: 0.5 mg Documented by: Sodium Chloride (Nacl 0.9% 1000 Ml) 1,000 mls @ 100 mls/hr IV DIRECT [facility] Last Admin: 03/30/21 12:39 Dose: 100 mls/hr Documented by: Cefepime HCl (Cefepime/Ns 2 Gm/100 Ml) 2 gm in 100 mls @ 200 mls/hr IV Q8H [facility]; Protocol Last Admin: 03/30/21 14:43 Dose: 200 mls/hr Documented by: Vancomycin HCl 1,250 mg/ (Sodium Chloride) 275 mls @ 166.667 mls/hr IV Q12H [facility] Last Admin: 03/30/21 12:39 Dose: 166.667 mls/hr Documented by: Metoclopramide HCl (Metoclopramide 10 Mg/2 Ml Inj) 10 mg IV Q6H PRN PRN Reason: Nausea And Vomiting Ondansetron HCl (Ondansetron 4 Mg/2 Ml Inj) 4 mg IV Q8H PRN PRN Reason: Nausea And Vomiting Oxycodone/Acetaminophen (Oxycodone /Acetaminophen 5-325mg Tab) 1 tab PO Q6H PRN PRN Reason: Pain, Moderate (4-6) Last Admin: 03/30/21 12:39 Dose: 1 tab Documented by: Sodium Chloride (Sodium Chloride 0.9% 10 Ml Flush Syringe) 10 ml IV BID [facility] Last Admin: 03/30/21 09:53 Dose: 10 ml Documented by: Sodium Chloride (Sodium Chloride 0.9% 10 Ml Flush Syringe) 10 ml IV PRN PRN PRN Reason: LINE FLUSH Tenofovir Disoproxil Fumarate (Tenofovir 300 Mg Tab) 300 mg PO QDAY [facility] Last Admin: 03/30/21 10:45 Dose: 300 mg Documented by: Physical Examination - Physical Exam Narrative exam: General appearance: Alert in NAD pleasant Eyes: anicteric sclerae, moist conjunctivae; no lid-lag; PERRLA HENT: Normocephalic, Atraumatic; normal external ears, nares open, oropharynx clear Neck: Marked edema, tenderness and induration in the submandibular area Lungs: CTA, with normal respiratory effort and no intercostal retractions CV: RRR no murmur Abdomen: Soft, non-tender; no masses or hepatosplenomegaly Extremities: no edema, no cyanosis Skin: No rash. Psych: no agitated Neuro: alert and oriented x 3. Moving all extermities - Constitutional Vitals: Vital Signs Temp Pulse Resp BP Pulse Ox 98.0 F 73 16 130/91 99 03/30/21 11:16 03/30/21 11:16 03/30/21 11:16 03/30/21 11:16 03/30/21 11:16 Temperature -Last 24 Hours Temperature 98.0 F Temperature 98.0 F Temperature 97.9 F Results - Labs CBC & Chem 7: 03/30/21 05:56 03/30/21 05:56 Labs: Abnormal lab results 03/30/21 03/30/21 Range/Units 05:56 05:56 WBC 16.0 H (4.5-11.0) K/mm3 [place] # (Auto) 0.9 H (0.0-0.8) K/mm3 Seg Neutrophils % 80.3 H (40.0-70.0) % Seg Neutrophils # 12.8 H (1.8-7.7) K/mm3 Glucose 107 H (75-100) mg/dL Albumin 3.8 L (3.9-5) g/dL Assessment and Plan Cultures: Culture 03/29/2021 no growth today Assessment: 36-year-old male with history of HIV stable on Biktarvy, admitted on 03/29/2021 secondary to submandibular edema, tenderness for the 24 hours: #Sepsis: Present on admission with low-grade fever, tachycardia, leukocytosis; likely secondary to submandibular abscess. #Submandibular abscess with reactive lymphadenopathies: Likely source secondary to dental infection. Patient with dental caries. #HIV infection: Patient takes Biktarvy without missing any dose. Recommendations: -Stop cefepime, stop clindamycin -Start Unasyn -Continue vancomycin for now -Continue Biktarvy equivalent-tenofovir,emtricitabine, dolutegravir -ENT consult -CRP -Monitor fever and leukocytosis, if no better consider repeat CT with contrast Will follow. Radha Hammond MD Infectious Diseases [facility] ([facility] M [phone] O [phone]
[2021-03-30] MEDS: AMPICILLIN/SULBACTA 3GM/100ML 3 GM/100 ML BAG IV SCH ×2 (18:41→23:09)
[2021-03-31] MEDS: CHLORHEXIDINE MOUTHWASH 473ML MM SCH ×3 (01:19→22:09)
[2021-03-31] MEDS: AMPICILLIN/SULBACTA 3GM/100ML 3 GM/100 ML BAG IV SCH ×4 (05:54→23:20)
[2021-03-31] MEDS: HYDROmorphone 1 MG/1 ML INJ IV PRN ×3 (05:54→21:04)
[2021-03-31 08:31] LABS: Basophils % (Auto) 0.2 % (0.0-1.8); Eosinophils # (Auto) 0.1 K/mm3 (0.0-0.4); Eosinophils % (Auto) 0.4 % (0.0-4.3); Hematocrit 36.1 % (35.5-45.6); Hemoglobin 11.9 gm/dl (11.8-15.2); Lymphocytes # (Auto) 3.4 K/mm3 (1.2-5.4); Lymphocytes % (Auto) 24.1 % (13.4-35.0); Mean Corpuscular HGB Conc 33 % (32-34); Mean Corpuscular Volume 89 fl (84-94); Monocytes # (Auto) 0.8 K/mm3 (0.0-0.8); Monocytes % (Auto) 6.1 % (0.0-7.3); Platelet Count 258 K/mm3 (140-440); Red Blood Count 4.08 M/mm3 (3.65-5.03); Red Cell Distribution Width 13.8 % (13.2-15.2)
[2021-03-31 08:48] LABS: BUN/Creatinine Ratio 8; Blood Urea Nitrogen 8 mg/dL (9-20); Calcium 8.5 mg/dL (8.4-10.2); Hemolysis Index 3
[2021-03-31] MEDS: TENOFOVIR 300 MG TAB PO SCH (10:27)
[2021-03-31] MEDS: DOLUTEGRAVIR 50 MG TAB PO SCH (10:27)
[2021-03-31] MEDS: EMTRICITABINE 200 MG CAP PO SCH (10:27)
[2021-03-31] MEDS: FAMOTIDINE 20 MG/2 ML INJ IV SCH (10:28)
--- NOTE | 2021-03-31 15:03 | Progress Note ---
Assessment and Plan Cultures: Culture 03/29/2021 no growth today Assessment: 36-year-old male with history of HIV stable on Biktarvy, admitted on 03/29/2021 secondary to submandibular edema, tenderness for the 24 hours: #Sepsis: better; likely secondary to submandibular abscess. #Submandibular abscess with reactive lymphadenopathies: Likely source secondary to dental infection. Patient with dental caries. Not better #HIV infection: Patient takes Biktarvy without missing any dose. Recommendations: -Close monitoring if not better in 1-2 days consider transferring for ENT eval -Repeat neck CT with contrast -Agree with steroids -Continue Unasyn -Continue vancomycin for now -Continue Biktarvy equivalent-tenofovir,emtricitabine, dolutegravir Will follow. Radha Hammond MD Infectious Diseases Lead Coater [facility] ([facility]) M [phone] O [phone] Subjective Date of service: 03/31/21 Principal diagnosis: Dental abscess Interval history: Patient feels about the same, some trismus, swallowing pain too, submandibular pain is 8 out of 10 Objective - Exam Narrative Exam: General appearance: Alert in NAD pleasant Eyes: anicteric sclerae, moist conjunctivae; no lid-lag; PERRLA HENT: Normocephalic, Atraumatic; normal external ears, nares open, oropharynx clear + mild trismus Neck: Marked edema, tenderness and induration in the submandibular area Lungs: CTA, with normal respiratory effort and no intercostal retractions CV: RRR no murmur Abdomen: Soft, non-tender; no masses or hepatosplenomegaly Extremities: no edema, no cyanosis Skin: No rash. Psych: no agitated Neuro: alert and oriented x 3. Moving all extermities - Constitutional Vitals: Vital Signs Temp Pulse Resp BP Pulse Ox 99.1 F 87 24 129/79 100 03/31/21 12:24 03/31/21 12:24 03/31/21 12:24 03/31/21 12:24 03/31/21 12:24 Temperature -Last 24 Hours Temperature 99.1 F Temperature 98.6 F Temperature 98.4 F Temperature 98.0 F - Labs CBC & Chem 7: 03/31/21 07:50 03/31/21 07:50 Labs: Abnormal lab results 03/31/21 03/31/21 Range/Units 07:50 07:50 WBC 13.9 H (4.5-11.0) K/mm3 Seg Neutrophils # 9.7 H (1.8-7.7) K/mm3 Sodium 135 L (137-145) mmol/L Potassium 3.5 L (3.6-5.0) mmol/L BUN 8 L (9-20) mg/dL
[2021-03-31] MEDS: SODIUM CHLORIDE 0.9% 1000 ML 1,000 ML IV SCH (15:49)
[2021-03-31] MEDS: VANCOMYCIN 1,250 MG in SODIUM CHLORIDE 0.9% 250ML 250 ML IV SCH (16:43)
--- NOTE | 2021-03-31 19:47 | Cat Scan Report ---
CT neck wo/w con INDICATION / CLINICAL INFORMATION: 36 years Male; MAIN. Submandibular abscess. TECHNIQUE: Contiguous thin cut axial images obtained through the neck following IV contrast. Sagittal and de jesus l reconstructions performed by the technologist. All CT scans at this location are performed using CT dose reduction for ALARA by means of automated exposure control. COMPARISON: The study is compared with the previous CT of 03/29/2021. FINDINGS: There appears be interval decrease in the enhancement involving left submandibular gland fr om the earlier CT at. However, there are continued notable surrounding inflammatory changes which inv olve the submental regions and superficial soft tissues with additional thickening of the platysma mu scle. There is no clear evidence of developing well-defined fluid collections within these regions to indicate abscess. MUCOSAL SPACE: There is continued mild prominence of the palatine soft tissues as previously describe d which may reflect lymphoid hypertrophy at. The epiglottis remains appropriate in size. LYMPH NODES: There is continued extensive reactive adenopathy particularly along the submental and ju gulodigastric regions, greater on the left. Similar findings were seen on the prior study at. SALIVARY GLANDS: As above. The visualized parotid glands appear to demonstrate fairly symmetric atten uation without developing calcification. THYROID GLAND: Unremarkable. PARANASAL SINUSES: Visualized paranasal sinuses and mastoid air cells are essentially clear. SPINE: No significant abnormality of the cervical spine appreciated. VASCULAR STRUCTURES: Vascular structures are grossly normal in appearance. IMPRESSION: 1. There has been interval decrease in the enhancement involving left submandibular gland from 03/29/20 21. However, there are continued at notable surrounding inflammatory changes as detailed above withou t clear CT evidence of developing fluid collection to indicate abscess; correlation be needed given t he history. 2. There is continued at notable reactive adenopathy as described. Signer Name: Kobi Mansfield MD Signed: 03/31/2021 7:43 PM Workstation Name: [id number]
[2021-03-31] MEDS: FAMOTIDINE 20 MG TAB PO SCH (22:08)
--- NOTE | 2021-03-31 23:55 | Progress Note ---
Assessment and Plan - Patient Problems (1) Systemic inflammatory response syndrome (SIRS) Current Visit: Yes Status: Acute Plan to address problem: high white count and Tachycardia On Unasyn IV and IV Vancomycin (2) Sialoadenitis Current Visit: Yes Status: Acute Plan to address problem: IV abx for now --IV Unasyn and IV Vancomycin If no response transfer to a facility with ENT Repeat Head CT with contrasr Add Decadron IV q12h (3) History of HIV infection Current Visit: Yes Status: Chronic Plan to address problem: on Biktarvy (4) DVT prophylaxis Current Visit: Yes Status: Acute Plan to address problem: on Heparin and GI prophylaxis Subjective Date of service: 03/31/21 Principal diagnosis: Dental abscess Interval history: 36 year old AA male who is HIV positive for HIV on Biktarvy comes in swelling of Left side of face especially mandibular region .Pain is about 8 on a scale of 1 to 10. He also has a history of poor dentition. He presents to the ER with a complaint of painful submandibular swelling, present since 3:00 this morning. Positive low-grade fever. Positive dentalgia on his mandibular area teeth, near tooth #20, 21. He states that he is coughed and vomited up some blood. He denies nasal pain. He has anterior neck pain. He denies headache, chest pain, abdominal pain. He denies loss of taste and smell. He denies diarrhea. He denies urinary symptoms. His submandibular neck pain and swelling is constant, increases with palpation and decreases with rest. He is not had this happen to him in the past. -: Gradual, hour(s) Location: mouth, neck Radiation: non-radiation Severity scale (0 -10): 7 Consistency: c onstant mproves with: rest Worsens with: movement Day #2 03/30/21 Sx same Day # 3 Sx same Able to eat Objective - Constitutional Vitals: Vital Signs - 12hr 03/31/21 03/31/21 03/31/21 12:24 16:54 21:04 Temperature 99.1 F 99.4 F Pulse Rate 87 83 Respiratory 24 24 18 Rate Blood Pressure 129/79 124/81 O2 Sat by Pulse 100 99 Oximetry 03/31/21 22:04 Temperature 98.9 F Pulse Rate 73 Respiratory 20 Rate Blood Pressure 136/91 O2 Sat by Pulse 98 Oximetry General appearance: Present: no acute distress, well-nourished - EENT Eyes: PERRL, EOM intact ENT: hearing intact, clear oral mucosa, other (Submandibular swelling present.Some decrease from initial presentation) Ears: bilateral: normal - Neck Neck: supple, normal ROM - Respiratory Respiratory effort: normal Respiratory: bilateral: CTA - Breasts Breasts: normal - Cardiovascular Heart rate: 78 Rhythm: regular Heart Sounds: Present: S1 & S2. Absent: gallop, rub Extremities: pulses intact, No edema, normal color, Full ROM - Gastrointestinal General gastrointestinal: Present: soft, non-tender, non-distended, normal bowel sounds - Genitourinary Male genitourinary: normal - Integumentary Integumentary: clear, warm, dry - Musculoskeletal Musculoskeletal: 1, strength equal bilaterally - Neurologic Neurologic: moves all extremities - Psychiatric Psychiatric: memory intact, appropriate mood/affect, intact judgment & insight - Labs CBC & Chem 7: 03/31/21 07:50 03/31/21 07:50 Labs: Abnormal lab results 03/31/21 03/31/21 03/31/21 Range/Units 07:50 07:50 15:15 WBC 13.9 H (4.5-11.0) K/mm3 Seg Neutrophils # 9.7 H (1.8-7.7) K/mm3 Sodium 135 L (137-145) mmol/L Potassium 3.5 L (3.6-5.0) mmol/L BUN 8 L (9-20) mg/dL C-Reactive Protein 4.80 H (0.00-1.30) mg/dL
[2021-04-01] MEDS: dexAMETHasone 4 MG/ML VIAL IV SCH (01:18)
[2021-04-01] MEDS: VANCOMYCIN 1,250 MG in SODIUM CHLORIDE 0.9% 250ML 250 ML IV SCH ×2 (01:18→13:10)
[2021-04-01] MEDS: HYDROmorphone 1 MG/1 ML INJ IV PRN ×3 (01:18→21:57)
[2021-04-01] MEDS: SODIUM CHLORIDE 0.9% 1000 ML 1,000 ML IV SCH ×2 (06:04→17:27)
[2021-04-01] MEDS: AMPICILLIN/SULBACTA 3GM/100ML 3 GM/100 ML BAG IV SCH ×4 (06:04→23:45)
[2021-04-01 06:20] LABS: Basophils % (Auto) 0.1 % (0.0-1.8); Eosinophils % (Auto) 0.1 % (0.0-4.3); Hematocrit 36.8 % (35.5-45.6); Hemoglobin 12.2 gm/dl (11.8-15.2); Lymphocytes # (Auto) 1.4 K/mm3 (1.2-5.4); Lymphocytes % (Auto) 15.1 % (13.4-35.0); Mean Corpuscular HGB Conc 33 % (32-34); Mean Corpuscular Volume 88 fl (84-94); Monocytes # (Auto) 0.2 K/mm3 (0.0-0.8); Monocytes % (Auto) 1.7 % (0.0-7.3); Platelet Count 267 K/mm3 (140-440); Red Blood Count 4.18 M/mm3 (3.65-5.03); Red Cell Distribution Width 13.6 % (13.2-15.2)
[2021-04-01 06:36] LABS: BUN/Creatinine Ratio 8; Blood Urea Nitrogen 7 mg/dL (9-20); Calcium 8.8 mg/dL (8.4-10.2); Hemolysis Index 0
[2021-04-01] MEDS: DOLUTEGRAVIR 50 MG TAB PO SCH (09:26)
[2021-04-01] MEDS: TENOFOVIR 300 MG TAB PO SCH (09:26)
[2021-04-01] MEDS: FAMOTIDINE 20 MG TAB PO SCH ×2 (09:26→21:55)
[2021-04-01] MEDS: EMTRICITABINE 200 MG CAP PO SCH (09:27)
[2021-04-01] MEDS: CHLORHEXIDINE MOUTHWASH 473ML MM SCH ×2 (09:27→21:56)
--- NOTE | 2021-04-01 14:35 | Progress Note ---
Assessment and Plan Cultures: Culture 03/29/2021 no growth today Assessment: 36-year-old male with history of HIV stable on Biktarvy, admitted on 03/29/2021 secondary to submandibular edema, tenderness for the 24 hours: #Sepsis: better; likely secondary to submandibular abscess. #Submandibular abscess with reactive lymphadenopathies: Improving. Likely source secondary to dental infection. Patient with dental caries. CRP 4.8. Repeat CT of neck shows improving submandibular abscess. #HIV infection: Patient takes Biktarvy without missing any dose. Recommendations: -Continue Unasyn D3 -Stop vancomycin -Continue Biktarvy equivalent-tenofovir,emtricitabine, dolutegravir -Monitor for 24 hours, if continued to improve okay to discharge on Unasyn 875 mg p.o. twice daily total 14 days til 04/12/2021 (extended due to lack of I+D) -Needs follow-up with dentist as soon as possible as an outpatient -ID clinic follow-up in 1 to 2 weeks Will follow. Radha Hammond MD Infectious Diseases Blue Print Control Clerk [facility] ([facility]) M [phone] O [phone] Subjective Date of service: 04/01/21 Principal diagnosis: Dental abscess Interval history: Patient feels better, no trismus, submandibular pain decreased to 6 out of 10, no fever. Objective - Exam Narrative Exam: General appearance: Alert in NAD pleasant Eyes: anicteric sclerae, moist conjunctivae; no lid-lag; PERRLA HENT: Normocephalic, Atraumatic; normal external ears, nares open, oropharynx clear no trismus Neck: Marked edema, tenderness and induration in the submandibular area improving Lungs: CTA, with normal respiratory effort and no intercostal retractions CV: RRR no murmur Abdomen: Soft, non-tender; no masses or hepatosplenomegaly Extremities: no edema, no cyanosis Skin: No rash. Psych: no agitated Neuro: alert and oriented x 3. Moving all extermities - Constitutional Vitals: Vital Signs Temp Pulse Resp BP Pulse Ox 98.9 F 82 22 139/92 99 04/01/21 12:08 04/01/21 12:08 04/01/21 12:08 04/01/21 12:08 04/01/21 12:08 Temperature -Last 24 Hours Temperature 98.9 F Temperature 98.8 F Temperature 98.9 F Temperature 99.4 F - Labs CBC & Chem 7: 04/01/21 05:53 04/01/21 05:53 Labs: Abnormal lab results 03/31/21 04/01/21 04/01/21 Range/Units 15:15 05:53 05:53 Seg Neutrophils % 83.0 H (40.0-70.0) % BUN 7 L (9-20) mg/dL Glucose 110 H (75-100) mg/dL C-Reactive Protein 4.80 H (0.00-1.30) mg/dL
--- NOTE | 2021-04-01 15:42 | Progress Note ---
Assessment and Plan - Patient Problems (1) Systemic inflammatory response syndrome (SIRS) Current Visit: Yes Status: Acute Plan to address problem: high white count and Tachycardia On Unasyn IV and IV Vancomycin (2) Sialoadenitis Current Visit: Yes Status: Acute Plan to address problem: IV abx for now --IV Unasyn and IV Vancomycin If no response transfer to a facility with ENT Repeat Head CT with contrasr Add Decadron IV q12h (3) History of HIV infection Current Visit: Yes Status: Chronic Plan to address problem: on Biktarvy (4) DVT prophylaxis Current Visit: Yes Status: Acute Plan to address problem: on Heparin and GI prophylaxis Subjective Date of service: 04/01/21 Principal diagnosis: Dental abscess Interval history: 36 year old AA male who is HIV positive for HIV on Biktarvy comes in swelling of Left side of face especially mandibular region .Pain is about 8 on a scale of 1 to 10. He also has a history of poor dentition. He presents to the ER with a complaint of painful submandibular swelling, present since 3:00 this morning. Positive low-grade fever. Positive dentalgia on his mandibular area teeth, near tooth #20, 21. He states that he is coughed and vomited up some blood. He denies nasal pain. He has anterior neck pain. He denies headache, chest pain, abdominal pain. He denies loss of taste and smell. He denies diarrhea. He denies urinary symptoms. His submandibular neck pain and swelling is constant, increases with palpation and decreases with rest. He is not had this happen to him in the past. -: Gradual, hour(s) Location: mouth, neck Radiation: non-radiation Severity scale (0 -10): 7 Consistency: c onstant mproves with: rest Worsens with: movement Day #2 03/30/21 Sx same Day # 3 Sx same Able to eat Objective - Constitutional Vitals: Vital Signs - 12hr 04/01/21 04/01/21 04/01/21 05:36 06:04 12:08 Temperature 98.8 F 98.9 F Pulse Rate 77 82 Respiratory 18 20 22 Rate Blood Pressure 124/77 139/92 O2 Sat by Pulse 98 99 Oximetry General appearance: Present: no acute distress, well-nourished - EENT Eyes: PERRL, EOM intact ENT: hearing intact, clear oral mucosa Ears: bilateral: normal - Neck Neck: supple, normal ROM - Respiratory Respiratory effort: normal Respiratory: bilateral: CTA - Breasts Breasts: normal - Cardiovascular Rhythm: regular Heart Sounds: Present: S1 & S2. Absent: gallop, rub Extremities: pulses intact, No edema, normal color, Full ROM - Gastrointestinal General gastrointestinal: Present: soft, non-tender, non-distended, normal bowel sounds - Genitourinary Male genitourinary: normal - Integumentary Integumentary: clear, warm, dry - Musculoskeletal Musculoskeletal: 1, strength equal bilaterally - Neurologic Neurologic: moves all extremities - Psychiatric Psychiatric: memory intact, appropriate mood/affect, intact judgment & insight - Labs CBC & Chem 7: 04/01/21 05:53 04/01/21 05:53 Labs: Abnormal lab results 03/31/21 04/01/21 04/01/21 Range/Units 15:15 05:53 05:53 Seg Neutrophils % 83.0 H (40.0-70.0) % BUN 7 L (9-20) mg/dL Glucose 110 H (75-100) mg/dL C-Reactive Protein 4.80 H (0.00-1.30) mg/dL
[2021-04-02] MEDS: HYDROmorphone 1 MG/1 ML INJ IV PRN (01:34)
[2021-04-02] MEDS: dexAMETHasone 4 MG/ML VIAL IV SCH (01:34)
[2021-04-02] MEDS: AMPICILLIN/SULBACTA 3GM/100ML 3 GM/100 ML BAG IV SCH ×2 (05:19→12:22)
[2021-04-02] MEDS: SODIUM CHLORIDE 0.9% 1000 ML 1,000 ML IV SCH (05:24)
[2021-04-02 07:57] LABS: Basophils % (Auto) 0.1 % (0.0-1.8); Eosinophils % (Auto) 0.1 % (0.0-4.3); Hemoglobin 12.6 gm/dl (11.8-15.2); Lymphocytes # (Auto) 2.2 K/mm3 (1.2-5.4); Lymphocytes % (Auto) 26.7 % (13.4-35.0); Mean Corpuscular HGB Conc 34 % (32-34); Mean Corpuscular Volume 89 fl (84-94); Monocytes # (Auto) 0.2 K/mm3 (0.0-0.8); Monocytes % (Auto) 2.3 % (0.0-7.3); Platelet Count 272 K/mm3 (140-440); Red Blood Count 4.15 M/mm3 (3.65-5.03); Red Cell Distribution Width 13.5 % (13.2-15.2)
[2021-04-02 08:25] LABS: Alanine Aminotransferase 26 units/L (7-56); Albumin 3.5 g/dL (3.9-5); BUN/Creatinine Ratio 10; Blood Urea Nitrogen 9 mg/dL (9-20); Calcium 8.8 mg/dL (8.4-10.2); Hemolysis Index 4
[2021-04-02] MEDS: TENOFOVIR 300 MG TAB PO SCH (09:51)
[2021-04-02] MEDS: FAMOTIDINE 20 MG TAB PO SCH (09:51)
[2021-04-02] MEDS: EMTRICITABINE 200 MG CAP PO SCH (09:51)
[2021-04-02] MEDS: DOLUTEGRAVIR 50 MG TAB PO SCH (09:52)
[2021-04-02] MEDS: CHLORHEXIDINE MOUTHWASH 473ML MM SCH (09:53)
--- NOTE | 2021-04-02 13:30 | Progress Note ---
Assessment and Plan Cultures: Culture 03/29/2021 no growth today Assessment: 36-year-old male with history of HIV stable on Biktarvy, admitted on 03/29/2021 secondary to submandibular edema, tenderness for the 24 hours: #Sepsis: resolved; likely secondary to submandibular abscess. #Submandibular abscess with reactive lymphadenopathies: Improving. Likely source secondary to dental infection. Patient with dental caries. CRP 4.8. Repeat CT of neck shows improving submandibular abscess. #HIV infection: Patient takes Biktarvy without missing any dose. Recommendations: -Continue Unasyn D4 -Continue Biktarvy equivalent-tenofovir,emtricitabine, dolutegravir -Okay to discharge on Augmentin 875 mg p.o. twice daily total 14 days til 04/12/2021 (extended due to lack of I+D) -Needs follow-up with dentist as soon as possible as an outpatient -ID clinic follow-up in 1 to 2 weeks Will sign off Radha Hammond MD Infectious Diseases Driver [employer] [facility] ([facility]) M [phone] O [phone] Subjective Date of service: 04/02/21 Principal diagnosis: Dental abscess Interval history: Patient feels much better, able to swallow, denies any trismus, no fever, submandibular swelling better. Objective - Exam Narrative Exam: General appearance: Alert in NAD pleasant Eyes: anicteric sclerae, moist conjunctivae; no lid-lag; PERRLA HENT: Normocephalic, Atraumatic; normal external ears, nares open, oropharynx clear no trismus Neck: Marked edema, tenderness and induration in the submandibular area improving Lungs: CTA, with normal respiratory effort and no intercostal retractions CV: RRR no murmur Abdomen: Soft, non-tender; no masses or hepatosplenomegaly Extremities: no edema, no cyanosis Skin: No rash. Psych: no agitated Neuro: alert and oriented x 3. Moving all extermities - Constitutional Vitals: Vital Signs Temp Pulse Resp BP Pulse Ox 97.7 F 60 20 127/89 97 04/02/21 05:28 04/02/21 05:26 04/02/21 05:28 04/02/21 05:26 04/02/21 05:28 Temperature -Last 24 Hours Temperature 97.7 F Temperature 98.8 F - Labs CBC & Chem 7: 04/02/21 07:11 04/02/21 07:11 Labs: Abnormal lab results 04/02/21 04/02/21 Range/Units 07:11 07:11 Seg Neutrophils % 70.8 H (40.0-70.0) % Glucose 117 H (75-100) mg/dL Albumin 3.5 L (3.9-5) g/dL
[2021-04-02 15:18] VITALS: BP 109/80
--- NOTE | 2021-04-02 18:37 | Discharge Summary ---
Providers - Providers Date of Admission: 03/30/21 14:35 Date of discharge: 04/02/21 Attending physician: BIBIANA SCOTT 03/29/21 22:50 Consult to Physician [CONS] Routine Comment: Consulting Provider: KARYN HACKETT Physician Instructions: Reason For Exam: Salivary gland abscess Primary care physician: CABLE BRAIDER Hospitalization Condition: Good Hospital course: Subjective Date of service: 04/01/21 Principal diagnosis: Dental abscess Interval history: 36 year old AA male who is HIV positive for HIV on Biktarvy comes in swelling of Left side of face especially mandibular region .Pain is about 8 on a scale of 1 to 10. He also has a history of poor dentition. He presents to the ER with a complaint of painful submandibular swelling, present since 3:00 this morning. Positive low-grade fever. Positive dentalgia on his mandibular area teeth, near tooth #20, 21. He states that he is coughed and vomited up some blood. He denies nasal pain. He has anterior neck pain. He denies headache, chest pain, abdominal pain. He denies loss of taste and smell. He denies diarrhea. He denies urinary symptoms. His submandibular neck pain and swelling is constant, increases with palpation and decreases with rest. He is not had this happen to him in the past. -: Gradual, hour(s) Location: mouth, neck Radiation: non-radiation Severity scale (0 -10): 7 Consistency: constant mproves with: rest Worsens with: movement Day #2 03/30/21 Sx same Day # 3 Sx same Able to eat Day #4 Symptomatically better Able to eat Assessment and Plan - Patient Problems (1) Systemic inflammatory response syndrome (SIRS) Current Visit: Yes Status: Acute Plan to address problem: high white count and Tachycardia On Unasyn IV and IV Vancomycin (2) Sialoadenitis Current Visit: Yes Status: Acute Plan to address problem: IV abx for now --IV Unasyn and IV Vancomycin If no response transfer to a facility with ENT Repeat Head CT with contrasr Add Decadron IV q12h (3) History of HIV infection Current Visit: Yes Status: Chronic Plan to address problem: on Biktarvy (4) DVT prophylaxis Current Visit: Yes Status: Acute Plan to address problem: on Heparin and GI prophylaxis Disposition: TO HOME OR SELFCARE Final Discharge Diagnosis (Prints w/discharge instructions): Sirs. Sialoadenitis. HIV Time spent for discharge: 35 minutes - Discharge Diagnoses (1) Systemic inflammatory response syndrome (SIRS) Status: Acute (2) Sialoadenitis Status: Acute (3) History of HIV infection Status: Chronic (4) DVT prophylaxis Status: Acute Core Measure Documentation - Palliative Care Palliative Care/ Comfort Measures: Not Applicable - Core Measures Any of the following diagnoses?: none Exam - Constitutional Vitals: Temp Pulse Resp BP Pulse Ox 98.6 F 65 20 109/80 100 04/02/21 13:26 04/02/21 13:26 04/02/21 13:26 04/02/21 13:26 04/02/21 13:26 General appearance: Present: no acute distress, well-nourished - EENT Eyes: Present: PERRL ENT: hearing intact, clear oral mucosa - Neck Neck: Present: supple, normal ROM - Respiratory Respiratory effort: normal Respiratory: bilateral: CTA - Cardiovascular Heart rate: 78 Heart Sounds: Present: S1 & S2. Absent: rub, click - Extremities Extremities: pulses symmetrical, No edema Peripheral Pulses: within normal limits - Abdominal General gastrointestinal: Present: soft, non-tender, non-distended, normal bowel sounds Male genitourinary: Present: normal - Rectal Rectal Exam: deferred - Integumentary Integumentary: Present: clear, warm, dry - Musculoskeletal Musculoskeletal: gait normal, strength equal bilaterally - Psychiatric Psychiatric: appropriate mood/affect, intact judgment & insight - Neurologic Neurologic: CNII-XII intact, moves all extremities - Allied Health Allied health notes reviewed: nursing, case management Plan Activity: no restrictions Diet: regular Follow up with: PRIMARY CARE, [Primary Care Provider] - 3-5 Days Prescriptions: Amoxicillin/K Clav Tab [Augmentin 875MG] 1 tab PO BID #28 tablet Bictegrav/Emtricit/Tenofov Ala [Biktarvy 50-200-25 mg (Nf)] 1 tab PO DAILY #30 Ibuprofen [Motrin] 400 mg PO Q8H PRN #20 tablet PRN Reason: Pain, Moderate (4-6)
== END 2021-04-02 20:15 | disposition home or self-care (01) | DRG 872 ==
LOC: ED 04:52 → 3A 14:13 → OBSVTOIN 03-30 14:35
PROVIDERS: ADMIT Internal Medicine; ATTEND Internal Medicine
DX: A41.9 Sepsis, unspecified organism (principal); K12.2 Cellulitis and abscess of mouth; K11.21 Acute sialoadenitis; R65.10 Systemic inflammatory response syndrome (SIRS) of non-infectious origin without acute organ dysfunction; Z21 Asymptomatic human immunodeficiency virus [HIV] infection status; R59.1 Generalized enlarged lymph nodes; J45.909 Unspecified asthma, uncomplicated; F17.200 Nicotine dependence, unspecified, uncomplicated
CPT/HCPCS: 36415; 70491; 70492; 71045; 80048; 80053; 80202; 82140; 82550; 83036; 83735; 85025; 85610; 85730; 86140; 87040; 96361; 96374; 96375; 99406; G0378; J0295; J0692; J1100; J1170; J1885; J2270; J2405; J3370; J7030; J7040; J7050; Q9967